=== PATIENT | female | born 1980 | race Hispanic/Latino ===

== ENCOUNTER 2024-10-20 09:32 | Inpatient (IN) | payer SELFPAY ==
[~2024-10-20] VITALS: Ht 165.1 cm; Wt 76.7 kg
[2024-10-20] MEDS: traMADol HCL 50 MG TABLET ONE (10:00)
--- NOTE | 2024-10-20 10:48 | HMCIMG ---
US TO LOCALIZE FB IN EYE REASON: EVALUATE RETINA. COMPARISON: None TECHNIQUE: Ultrasound images were obtained by the emergency room physician for evaluation of retina. FINDINGS: Please see referring physician procedure report. IMPRESSION: Findings as described above.
[2024-10-20] MEDS: traMADol HCL 50 MG TABLET PO ONE (10:52)
[2024-10-20] MEDS: ondanSETRON 4MG INJ IVP ONE ×2 (10:54→19:31)
[2024-10-20] MEDS: PANTOPrazole 40 MG/VIAL IVP ONE (10:54)
[2024-10-20] MEDS: LACTATED RINGERS 1000ML 1,000 ML IV ONE (10:55)
[2024-10-20 11:05] LABS: BASOPHILS # (AUTO) 0.13 K/uL (0.00-0.20); BASOPHILS % (AUTO) 0.8 % (0.0-5.0); EOSINOPHILS # (AUTO) 0.08 K/uL (0.00-0.70); EOSINOPHILS % (AUTO) 0.5 % (0.0-8.0); HEMATOCRIT 40.3 % (36-48); IMMATURE GRANULOCYTE ABSOLUTE 1.11 K/uL (0-1); LYMPHOCYTES # (AUTO) 2.5 K/uL (1.0-4.8); LYMPHOCYTES % (AUTO) 14.6 % (21.0-51.0); MEAN CORPUSCULAR HEMOGLOBIN 30.1 pg (27.0-33.0); MEAN CORPUSCULAR VOLUME 88.6 fL (79-99); MONOCYTES # (AUTO) 1.3 K/uL (0.1-1.0); MONOCYTES % (AUTO) 7.7 % (3.0-13.0); NEUTROPHILS # (AUTO) 11.8 K/uL (1.8-7.7); NEUTROPHILS % (AUTO) 69.8 % (40.0-77.0); PLATELET COUNT (AUTO) 202 K/uL (130-400); RED BLOOD CELL COUNT(AUTO) 4.55 MIL/uL (4.00-5.50); RED CELL DISTRIBUTION WIDTH 12.9 % (11.0-15.5); WHITE BLOOD COUNT (AUTO) 16.9 K/uL (4.8-10.8)
[2024-10-20] MEDS: morPHINE 4 MG SYG ONE (11:07)
[2024-10-20] MEDS: morPHINE 4 MG SYG IVP ONE (11:07)
[2024-10-20 11:16] LABS: POTASSIUM 3.5 mmol/L (3.5-5.1)
[2024-10-20 11:20] LABS: ALBUMIN 2.7 g/dL (3.5-5.0); BILIRUBIN,TOTAL 0.6 mg/dL (0.2-1.0); TOTAL PROTEIN, SERUM 7.7 g/dL (6.0-8.3)
--- NOTE | 2024-10-20 11:52 | EKG ---
[facility] Test Date: 2024-10-20 Test Time: 10:37:38 Pat Name: JAKE SANCHEZ Department: ED Room: Gender: F Reflexologist: STUDENT : 1980 Requested By: MAYITO SOMMERS Order Number: [id number] Reading MD: Sophia Ball Measurements Intervals Sinclair Rate: 78 P: 51 VT: 168 QRS: -26 QRSD: 83 T: 41 QT: 399 QTc: 456 Interpretive Statements Sinus rhythm Probable left atrial enlargement Low voltage, precordial leads No previous ECG available for comparison Electronically Signed On 10-20-2024 12:24:22 CDT by Sophia Ball Please click the below link to view image of tracing.
--- NOTE | 2024-10-20 12:58 | NUR ---
CT DELAY DUE TO HCG
--- NOTE | 2024-10-20 13:29 | HMCIMG ---
CT ABDOMEN/PELVIS W/O CONTRAST HISTORY: Low abdominal pain COMPARISON: None TECHNIQUE: Multiple sequential axial images of the abdomen and pelvis were obtained from the dome of the diaphragm through symphysis pubis. Patient was not given contrast through intravenous route. Oral contrast was not given. FINDINGS: No pleural effusion is seen bilaterally. There is no evidence of parenchymal disease or pulmonary nodule of the visualized lower lungs. Degenerative changes of the thoracolumbar spine are present. The heart is not enlarged. Liver measures 19 cm. Gastric distention is seen. Gallstone is seen in the distended gallbladder. The liver, spleen, adrenal glands and pancreas are unremarkable. No hydronephrosis is seen on the left. There is right renal enlargement with perinephric fat stranding and minimal right renal pelvis prominence. Findings may be related to pyelonephritis versus recently passed stone. Urinalysis correlation may be helpful. No evidence of renal stone is seen. Fecal material is seen in the colon. There are normal size retroperitoneal and mesenteric lymph nodes. No ascites is seen. Uterus has been removed. No CT evidence of acute appendicitis is seen. Pelvic sidewalls are symmetric bilaterally. Bladder is well distended without wall thickening. IMPRESSION: 1. There is right renal enlargement with perinephric fat stranding and minimal right renal pelvis prominence. Findings may be related to pyelonephritis versus recently passed stone. Urinalysis correlation may be helpful. CT was performed with one or more following dose reduction techniques: automated exposure control, adjustment of the mA and kv according to patient's size, or use of a iterative reconstruction technique.
[2024-10-20 13:34] LABS: APPEARANCE,URINE CLOUDY (CLEAR); BACTERIA,URINE RARE /HPF (None Seen); BILIRUBIN,URINE NEGATIVE (NEGATIVE); COLOR,URINE LIGHT-YELLOW (YELLOW); GLUCOSE, URINE (UA) >=1000 mg/dL (NEGATIVE); KETONES,URINE 150 mg/dL (NEGATIVE); LEUKOCYTE ESTERASE ,URINE 250 Leu/uL (NEGATIVE); MUCUS,URINE RARE LPF (None Seen); NITRATE,URINE 1+ (NEGATIVE); PH,URINE 5.5 (5.0-8.0); PROTEIN,URINE 20 mg/dL (NEGATIVE); SQUAMOUS EPITHELIAL CELL,UR FEW /HPF (0-2); UROBILINOGEN,URINE 0.2 mg/dL (0.2-1.0); WBC CLUMP FEW /HPF (0-1); WBC,URINE TNTC /HPF (0-1)
--- NOTE | 2024-10-20 13:43 | ERN ---
General Chief Complaint: Eye Problems Stated Complaint: RT EYE PAIN, Time Seen by MD: 09:41 Source: patient History of Present Illness Initial Comments Patient is a 44-year-old female coming in to be evaluated for right eye discomfort. Per patient this has been ongoing for several days was evaluated another emergency room and was told to follow up with water treatment specialist. Patient states that her vision is decreased in the right side and believes it was associated to retching. Allergies: Coded Allergies: No Known Allergies (Unverified Allergy, Unknown, 10/20/24) Past Medical History Past Medical History: No Pertinent History Past Surgical History: Hysterectomy ROS Dictation CONSTITUTIONAL: No chills, no fever, no weakness, no diaphoresis, no malaise. HEAD/FACE: No signs of trauma. EENT: No eye pain, blurred vision, no tearing, no double vision, no ear pain, no ear discharge, no nose pain, no nasal congestion, no throat pain, no throat swelling, no mouth pain. RESPIRATORY: No cough, no orthopnea, no SOB, no stridor, no wheezing. CARDIOVASCULAR: No chest pain, no edema, no palpitations, no syncope. GASTROINTESTINAL/ABDOMINAL: No abdominal pain, no constipation, no diarrhea, no nausea, no vomiting. GENITOURINARY: No abnormal discharge, no dysuria, no frequent urination, no hematuria. No complaints of pain in the genitals. MUSCULOSKELETAL: No back pain, no gout, no joint pain, no joint swelling, no muscle pain, no muscle stiffness, no neck pain. INTEGUMENTARY: No change in color, no change in hair/nails, no dryness, no lesion, no lumps, no rash. NEUROLOGICAL/PSYCH: No anxiety, not depressed, no emotional problem, no heada freda, no numbness, no pre-existing deficit, no history of seizures, no tremors, no weakness. HEMATOLOGIC/LYMPHATIC: Not anemic, no history of blood clots, no apparent bleeding, no bruising, glands not swollen. All Systems Negative, Except as Noted. Physical Exam Physical Exam Dictation VITAL SIGNS: Reviewed. GENERAL APPEARANCE: Alert, oriented x3, no acute distress, obese. HEAD AND FACE: Non-traumatic. EYES: PERRL, pink conjunctivas, eyelid no trauma, anterior chamber clear. EARS: Pinnas intact and no signs of trauma or erythema. Ear canals clear and no discharge. TMs no erythema. NOSE: No discharge, no bleeding. OROPHARYNX: Mouth normal, teeth no caries, tongue pink. Pharynx clear, no erythema. Tonsils no exudates, no abscesses noted. Mucous membrane moist. NECK: Supple, non-tender, no thyromegaly, no masses, no JVD, no bruits. BREAST: Deferred. CHEST: No tenderness, no crepitus, no paradoxical movement, no retractions. LUNGS: Clear, well-ventilated, symmetric, no rales, no wheezing, no rhonchi, no stridor, good breath sounds bilaterally. HEART: Regular rate, regular rhythm, no murmur, no gallops. VASCULAR: No peripheral edema. ABDOMEN: Soft, positive bowel sounds, nondistended, no guarding, nontender, no rebound, no masses no hepatomegaly, no splenomegaly, no Henning's sign, no hernias. RECTAL: Deferred. GENITAL: Deferred. NEUROLOGICAL: Normal speech, gross motor function intact, gross sensory function intact. MUSCULOSKELETAL: Neck nontender, full range of motion, back nontender, full range of motion. EXTREMITIES: Nontender, full range of motion. SKIN: Color pink, dry, no turgor, no rash, no lacerations, no abrasions, no contusions. LYMPHATICS: Deferred. Results Laboratory and Microbiology Lab and Micro Result Laboratory Tests Test 10/20/24 11:00 10/20/24 12:55 White Blood Count 16.9 K/uL (4.8-10.8) H Red Blood Count 4.55 MIL/uL (4.00-5.50) Hemoglobin 13.7 g/dL (12.0-16.0) Hematocrit 40.3 % (36-48) Mean Corpuscular Volume 88.6 fL (79-99) Mean Corpuscular Hemoglobin 30.1 pg (27.0-33.0) Mean Corpuscular Hemoglobin Concent 34.0 g/dL (32.0-36.0) Red Cell Distribution Width 12.9 % (11.0-15.5) Platelet Count 202 K/uL (130-400) Mean Platelet Volume 10.6 fL (7.5-10.5) H Immature Granulocyte % (Auto) 6.6 % (0-1) H Neutrophils (%) (Auto) 69.8 % (40.0-77.0) Lymphocytes (%) (Auto) 14.6 % (21.0-51.0) L Monocytes (%) (Auto) 7.7 % (3.0-13.0) Eosinophils (%) (Auto) 0.5 % (0.0-8.0) Basophils (%) (Auto) 0.8 % (0.0-5.0) Neutrophils # (Auto) 11.8 K/uL (1.8-7.7) H Lymphocytes # (Auto) 2.5 K/uL (1.0-4.8) Monocytes # (Auto) 1.3 K/uL (0.1-1.0) H Eosinophils # (Auto) 0.08 K/uL (0.00-0.70) Basophils # (Auto) 0.13 K/uL (0.00-0.20) Absolute Immature Granulocyte (auto 1.11 K/uL (0-1) H Nucleated Red Blood Cells 0.0 % (0.0-0.19) Sodium Level 131 mmol/L (136-145) L Potassium Level 3.5 mmol/L (3.5-5.1) Chloride Level 92 mmol/L (101-111) L Carbon Dioxide Level 22 mmol/L (21-32) Blood Urea Nitrogen 20 mg/dL (7-18) H Creatinine 1.0 mg/dL (0.5-1.0) Glomerular Filtration Rate Calc 70 mL/min (>90) Random Glucose 313 mg/dL (70-105) H Total Calcium 9.5 mg/dL (8.5-10.1) Total Bilirubin 0.6 mg/dL (0.2-1.0) Aspartate Amino Transf (AST/SGOT) 19 U/L (10-37) Alanine Aminotransferase (ALT/SGPT) 36 U/L (12-78) Alkaline Phosphatase 140 U/L (50-136) H Troponin I High Sensitivity < 4 ng/L (4-50) L Total Protein 7.7 g/dL (6.0-8.3) Albumin 2.7 g/dL (3.5-5.0) L Lipase 36 U/L (16-77) Urine Color LIGHT-YELLOW (YELLOW) Urine Appearance CLOUDY (CLEAR) H Urine pH 5.5 (5.0-8.0) Urine Specific [place] 1.023 (1.001-1.031) Urine Protein 20 mg/dL (NEGATIVE) H Urine Glucose (UA) >=1000 mg/dL (NEGATIVE) H Urine Ketones 150 mg/dL (NEGATIVE) H Urine Occult Blood +- (TRACE) (NEGATIVE) H Urine Nitrate 1+ (NEGATIVE) H Urine Bilirubin NEGATIVE mg/dL (NEGATIVE) Urine Urobilinogen 0.2 mg/dL (0.2-1.0) Urine Leukocyte Esterase 250 Javan/uL (NEGATIVE) H Urine RBC 2-5 /HPF (0-1) H Urine WBC TNTC /HPF (0-1) H Urine WBC Clumps (Auto) FEW /HPF (0-1) Urine Squamous Epithelial Cells FEW /HPF (0-2) Urine Bacteria RARE /HPF (None Seen) Urine HCG, Qualitative NEGATIVE (NEGATIVE) Labs Reviewed?: Yes EKG/XRAY/US/CT/MRI CT Scan Comment [place] [address] [id number] IMAGING REPORT Signed PATIENT: JAKE SANCHEZ MR#: [id number] : 1980 SEX: F AGE: 44 LOCATION: [facility] ORDER 1232 STATUS: [facility] REPORT#: [id number] SERVICE 1232 REASON: LOWER ABD PAIN ORDERING PHYSICIAN: MAYITO SOMMERS MD PROCEDURE: ABD PEL WO - CT ABDOMEN/PELVIS W/O CONTRAST CT ABDOMEN/PELVIS W/O CONTRAST HISTORY: Low abdominal pain COMPARISON: None TECHNIQUE: Multiple sequential axial images of the abdomen and pelvis were obtained from the dome of the diaphragm through symphysis pubis. Patient was not given contrast through intravenous route. Oral contrast was not given. FINDINGS: No pleural effusion is seen bilaterally. There is no evidence of parenchymal disease or pulmonary nodule of the visualized lower lungs. Degenerative changes of the thoracolumbar spine are present. The heart is not enlarged. Liver measures 19 cm. Gastric distention is seen. Gallstone is seen in the distended gallbladder. The liver, spleen, adrenal glands and pancreas are unremarkable. No hydronephrosis is seen on the left. There is right renal enlargement with perinephric fat stranding and minimal right renal pelvis prominence. Findings may be related to pyelonephritis versus recently passed stone. Urinalysis correlation may be helpful. No evidence of renal stone is seen. Fecal material is seen in the colon. There are normal size retroperitoneal and mesenteric lymph nodes. No ascites is seen. Uterus has been removed. No CT evidence of acute appendicitis is seen. Pelvic sidewalls are symmetric bilaterally. Bladder is well distended without wall thickening. IMPRESSION: 1. There is right renal enlargement with perinephric fat stranding and minimal right renal pelvis prominence. Findings may be related to pyelonephritis versus recently passed stone. Urinalysis correlation may be helpful. CT was performed with one or more following dose reduction techniques: automated exposure control, adjustment of the mA and kv according to patient's size, or use of a iterative reconstruction technique. DICTATED BY: ALISON MORALES MD DATE: 10/20/24 1322 ELECTRONICALLY SIGNED BY: ALISON MORALES MD DATE: 10/20/24 1329 [place] [address] [place] [id number] IMAGING REPORT Signed PATIENT: JAKE SANCHEZ MR#: [id number] : 1980 SEX: F AGE: 44 LOCATION: ED ORDER 7 STATUS: REG ER REPORT#: [id number] SERVICE REASON: EVALUATE RETINA ORDERING PHYSICIAN: MAYITO SOMMERS MD PROCEDURE: FB EYE - US TO LOCALIZE FB IN EYE US TO LOCALIZE FB IN EYE REASON: EVALUATE RETINA. COMPARISON: None TECHNIQUE: Ultrasound images were obtained by the emergency room physician for evaluation of retina. FINDINGS: Please see referring physician procedure report. IMPRESSION: Findings as described above. DICTATED BY: ALISON MORALES MD DATE: 10/20/24 1044 ELECTRONICALLY SIGNED BY: ALISON MORALES MD DATE: 10/20/24 1048 [place] [address] [id number] IMAGING REPORT Signed PATIENT: JAKE SANCHEZ MR#: [id number] : 1980 SEX: F AGE: 44 LOCATION: [facility] ORDER 21 STATUS: REG ER REPORT#: [id number] SERVICE 20 REASON: headache ORDERING PHYSICIAN: MAYITO SOMMERS MD PROCEDURE: HEAD WO - CT HEAD/BRAIN W/O CONTRAST CT HEAD/BRAIN W/O CONTRAST HISTORY: Headaches COMPARISON: None TECHNIQUE: Multiple sequential axial images of the head were obtained from the base of the skull through vertex. Patient was not given contrast through intravenous route. FINDINGS: The ventricles and extraventricular CSF spaces are nondilated for patient's age. Bilateral basal ganglia calcifications are seen. There is no midline shift, mass effect or herniation. No acute intracranial bleed is seen. Visualized portion of the paranasal sinuses are grossly within normal limits. IMPRESSION: 1. No acute intracranial bleed is seen. CT was performed with one or more following dose reduction techniques: automated exposure control, adjustment of the mA and kv according to patient's size, or use of a iterative reconstruction technique. DICTATED BY: ALISON MORALES MD DATE: 10/20/241530 ELECTRONICALLY SIGNED BY: ALISON MORALES MD DATE: 10/20/24 153 [facility] MDM: Differential diagnosis:, retinal detachment, virus, Rationale: Tests considered and ordered secondary to shared decision making include: Previous outside records reviewed: Old ER visits. Patient is a 44-year-old female coming in to be evaluated for right eye vision loss. She states that this has been ongoing for several days was evaluated another emergency room was referred to cane stripper but states that she has not followed up. Long with this during the ER stay patient states that she was retching which caused the right eye pressure to increased. She states that this has been ongoing in his also complaining of lower abdominal pain secondary to the retching. CT was performed due to the ongoing abdominal pain which disclosed pyelonephritis. Long with a his patient had decreased vision in the right eye ultrasound disclose a mild retinal detachment. Dr. Bustillos consulted cane stripper she will see patient in the hospital. She states that she was scheduled patient for office visit possible surgical evaluation. Patient will be admitted under the care of hospitalist group for ongoing management of pyelonephritis. ED Course Orders Procedure Category Date Status Time Tramadol Hcl (Ultram) PHA 10/20/24 Complete 10:00 Us To Localize Fb In US 10/20/24 Resulted EYE 09:57 Tramadol Hcl (Ultram) PHA 10/20/24 Complete 09:58 Cbc With Differential LAB 10/20/24 Complete 10:24 Comprehensive LAB 10/20/24 Complete Metabolic Panel 10:24 Troponin I High LAB 10/20/24 Complete Sensitivity 10:24 12 Lead Ekg Tracing- EKG 10/20/24 Resulted Technical 10:24 Lactated Ringers PHA 10/20/24 Complete 1000ml (Lactated 10:30 Ondansetron 4mg Inj PHA 10/20/24 Complete (Zofran 4mg Inj) 10:30 Pantoprazole 40mg Inj PHA 10/20/24 Complete (Protonix 40mg Inj 10:30 Lipase LAB 10/20/24 Complete 10:24 Morphine 4mg Syg PHA 10/20/24 Complete (Morphine 4mg Syg) 11:30 Morphine 4mg Syg PHA 10/20/24 Complete (Morphine 4mg Syg) 11:05 Urinalysis LAB 10/20/24 Complete W/Microscopic 12:32 Ct Abdomen/Pelvis W/O CT 10/20/24 Resulted Contrast 12:32 ,Urine Test LAB 10/20/24 Complete 12:32 Culture Urine SAL 10/20/24 In Process 13:37 Ct Head/Brain W/O CT 10/20/24 Resulted Contrast 14:21 Acetaminophen 325 Tab PHA 10/20/24 Complete (Tylenol 325mg Tab 14:30 Ceftriaxone 1g Vial PHA 10/20/24 In Process (Rocephine 1g Inj) 17:00 Ceftriaxone 1g Vial PHA 10/20/24 Complete (Rocephine 1g Inj) 17:04 Current Medications Medications (Trade) Dose Ordered Sig/Tyrell Route PRN Reason Start Time Stop Time Status Last Admin Dose Admin Acetaminophen (TYLenol 325MG TAB) 650 mg ONCE ONCE PO 10/20/24 14:30 10/20/24 14:31 DC 10/20/24 14:25 Ceftriaxone Sodium (ROCEphine 1G INJ) 1 gm ONCE IVPB 10/20/24 17:00 10/20/24 21:00 Ceftriaxone Sodium (ROCEphine 1G INJ) 1 gm STK-MED ONCE .ROUTE 10/20/24 17:04 10/20/24 17:04 DC 10/20/24 17:06 Lactated Ringer's 1,000 ml @ 0 mls/hr ONCE ONCE IV 10/20/24 10:30 10/20/24 10:31 DC 10/20/24 10:55 Morphine Sulfate (morPHINE 4MG SYG) 4 mg ONCE ONCE IVP 10/20/24 11:30 10/20/24 11:31 DC 10/20/24 11:07 Morphine Sulfate (morPHINE 4MG SYG) 4 mg STK-MED ONCE .ROUTE 10/20/24 11:05 10/20/24 11:05 DC Ondansetron HCl (zoFRAN 4MG INJ) 4 mg ONCE ONCE IVP 10/20/24 10:30 10/20/24 10:31 DC 10/20/24 10:54 Pantoprazole Sodium (PROTonix 40MG INJ) 40 mg ONCE ONCE IVP 10/20/24 10:30 10/20/24 10:31 DC 10/20/24 10:54 Tramadol HCl (UltRAM) 50 mg ONCE ONCE PO 10/20/24 10:00 10/20/24 10:02 DC Tramadol HCl (UltRAM) 50 mg STK-MED ONCE .ROUTE 10/20/24 09:58 10/20/24 09:58 DC 10/20/24 10:00 Vital Signs Date Time Temp Pulse Resp B/P (MAP) Pulse Ox O2 Delivery O2 Flow Rate FiO2 10/20/24 14:52 81 16 140/78 98 Room Air* 0 21 10/20/24 12:36 82 16 141/81 98 Room Air* 0 21 10/20/24 09:35 98.2 95 16 123/79 98 Room Air 0 DX & DISP Disposition: Inpatient Decision to Admit Time: 18:23 Departure Impression: Primary Impression: Retinal detachment Additional Impression: Pyelonephritis Condition: Stable Referrals: NONE (PCP) MAYITO SOMMERS MD Oct 20, 2024 13:43
[2024-10-20 13:46] LABS: HCG,QUALITATIVE URINE NEGATIVE (NEGATIVE)
--- NOTE | 2024-10-20 14:22 | NUR ---
PT C/O HEADACHE, TYLENOL ORDERED BY DR. SOMMERS
[2024-10-20] MEDS: acetaMINOPHEN 325 MG TAB PO ONE (14:25)
--- NOTE | 2024-10-20 15:33 | HMCIMG ---
CT HEAD/BRAIN W/O CONTRAST HISTORY: Headaches COMPARISON: None TECHNIQUE: Multiple sequential axial images of the head were obtained from the base of the skull through vertex. Patient was not given contrast through intravenous route. FINDINGS: The ventricles and extraventricular CSF spaces are nondilated for patient's age. Bilateral basal ganglia calcifications are seen. There is no midline shift, mass effect or herniation. No acute intracranial bleed is seen. Visualized portion of the paranasal sinuses are grossly within normal limits. IMPRESSION: 1. No acute intracranial bleed is seen. CT was performed with one or more following dose reduction techniques: automated exposure control, adjustment of the mA and kv according to patient's size, or use of a iterative reconstruction technique.
[2024-10-20] MEDS: cefTRIAXone 1G VIAL IVPB SCH (17:00)
[2024-10-20] MEDS: cefTRIAXone 1G VIAL ONE (17:06)
--- NOTE | 2024-10-20 19:23 | NUR ---
TOOK OVER PATIENT AT THIS TIME
[2024-10-20] MEDS ORDERED: PoTASSium chloRIDE 20MEQ/100ML 100 ML IV PRN (19:30)
[2024-10-20] MEDS ORDERED: PoTASSium chloRIDE 20MEQ ER 20 MEQ ERTAB PO PRN (19:30)
[2024-10-20] MEDS ORDERED: PoTASSium chl 10% ELIXIR 20MEQ 20 MEQ/15 ML UDCUP PO PRN (19:30)
[2024-10-20] MEDS ORDERED: DEXTROSE 50%-WATER 50 ML DISP.SYRIN IV PRN (19:30)
[2024-10-20] MEDS ORDERED: GLUCAGON 1MG KIT 1 MG ML IM PRN (19:30)
[2024-10-20] MEDS ORDERED: acetaMINOPHEN 325 MG TAB PO PRN (19:30)
[2024-10-20] MEDS ORDERED: MAGNESIUM 2GM PREMIX 50ML 50 ML IV PRN (19:30)
[2024-10-20] MEDS: morPHINE 2 MG SYG IM ONE (19:32)
--- NOTE | 2024-10-20 19:35 | HP ---
[facility] HISTORY AND PHYSICAL Date of Service: Oct 20, 2024 Time of Service: 19:35 PCP: Self-referral HISTORY OF PRESENT ILLNESS: This is a 44-year-old female with no pertinent medical history who presented to the ED for complaints of right eye pain.Patient reports her condition started when she was in [place], [place] and was having nausea and vomiting since Sunday and and when she woke up on Sunday she had seen black specks on her right eye and patient also reports she continued to have nausea but no vomiting and on Sunday she woke up with diminished vision on her right eye and she started having eye pain and on Sunday night she lost her vision she said and she went to an ER in [place] and was told to follow up with an opthalmologist on Sunday however patient decided to go home and drive from [place] to [place] today.Patient also states she had Lasik procedure done 25 years ago on both eyes in [place].Patient states this is the first time it happened and she thought that due eye pressure from nausea and vomiting she had this eye problem .Patient admits to drinking 6-7 beers per week and smoke 2 cigarettes per day and denies recreational drug use.Patient also reports she also has right flank pain but already subsided because she was given pain medication.Patient's mother was at bedside during my evaluation. Seen and examined patient in the ER awake,alert and coherent.Patient continue to complain of right side headache and right eye pain 8/10 pain level.Patient states " I cant see on my right eye since Sunday night " Right eye is non reactive with pale retina and Patient denies fever,dizziness ,chest pain,palpitation and shortness of breath. Vital signs temperature 98.6, heart rate 96, respiration 20, blood pressure 137/75 saturation 100% on room air. Labs: WBC 16.9, hemoglobin 13.7, hematocrit 40, platelet count 202. Sodium 131, potassium 3.5, chloride 92, BUN 20, creatinine 1, GFR 70, glucose 313, alkaline phosphatase 140 albumin 2.7. Urinalysis consistent with urinary tract infection. CT head result revealed no acute intracranial bleed is seen. CT abdomen and pelvis without contrast result revealed there is right renal enlargement with perinephric fat stranding and minimal right renal pelvis prominence. Findings may be related to pyelonephritis versus recently passed stone. Pending at this time however as per ER MD right eye ultrasound disclosed a mild retinal detachment. An blanket cutting machine operator Dr. Bustillos was consulted by ER doctor Melissa as per report and we will see the patient in the hospital. While in the ER patient received Rocephin IV, Zofran 4 mg IV, morphine 4 mg IV, Protonix 40 mg IV, Ultram 50 mg p.o. and 1 L LR bolus. We will admit patient for further medical management. REVIEW OF SYSTEMS CONSTITUTIONAL: Denies fevers, chills, or night sweats. No unintentional weight loss reported. NEUROLOGICAL: Complain of right sided headache Denies amaurosis fugax, motor weakness, sensory deficit, vertigo/spinning sensation, gait abnormalities, or tremors. ENT: Patient complained of right eye vision loss and right eye pain No hearing loss, otalgia, otorrhea, rhinitis, rhinorrhea, hoarseness, or sore throat. CARDIOVASCULAR: Denies any exertional angina, dyspnea on exertion, orthopnea, paroxysmal nocturnal dyspnea, palpitations, life-threatening arrhythmias, c laudication. PULMONARY: Denies any shortness of breath, cough, phlegm/sputum, hemoptysis, pleuritic chest pain. SLEEP: Denies morning headaches, daytime somnolence or napping. Denies difficulty falling asleep, staying asleep, waking from sleep. Denies knowledge of snoring. GASTROINTESTINAL: Denies any type of dysphagia to either liquids or solids. Denies nausea, vomiting, pyrosis, early satiety, abdominal pain, diarrhea, cons tipation, or changes in stool consistency or caliber. Denies coffee-ground emesis, hematemesis, hematochezia, or melanotic stools. GENITOURINARY: Denies frequency, urgency, nocturia, hematuria or incontinence (Storage/Irritative symptoms.) Low urinary stream, straining to void, urinary intermittency or hesitancy, splitting of the voiding stream, terminal dribbling. ENDOCRINOLOGIC: Denies polyuria, polydipsia, polyphagia or heat/cold intolerances. HEMATOLOGIC: Denies thrombophilia/previous clots, or coagulopathy/bleeding disorders. ONCOLOGIC: Denies personal history of malignancy. DERMATOLOGIC: Denies rashes or pruritus. PSYCHIATRIC: Denies any suicidal or homicidal ideation. Denies hallucinations. PAST MEDICAL HISTORY: [Patient denies ] PAST SURGICAL HISTORY: [ Bilateral eye LASIK procedure 25 years ago in [place] ] PAST SOCIAL HISTORY: [ Patient lives with mother. Patient admits to smoke two cigarettes per day drinks 6-7 beers per week and denies recreational drug use ] FAMILY HISTORY: [ Mother diabetes ] Coded Allergies: No Known Allergies (Unverified Allergy, Unknown, 10/20/24) PHYSICAL EXAM GENERAL APPEARANCE: The patient is awake, alert, and oriented, in no acute cardiopulmonary distress. NEUROLOGICAL: Cranial nerves II-XII grossly intact. Motor is 5/5 in bilateral upper and lower extremities proximal to distal. No sensory deficits. HEENT: Right eye nonreactive and pale retina Face is symmetric. NECK: Supple. No JVD. No thyromegaly. No submental, submandibular, pre- /postauricular, occipital or supraclavicular lymphadenopathy. CHEST: Normal chest expansion. No Telemetry. LUNGS: Absence of any rales, rhonchi or any wheezing. CARDIOVASCULAR: Regular. S1 and S2 normal. No appreciable rubs, murmurs or gallops. ABDOMEN: Soft, nontender, and nondistended. There is no rebound, voluntary guarding, or rigidity. : Deferred. No Ryan. EXTREMITIES: Non-edematous and not cyanotic. No clubbing. Good capillary refill. SKIN: No skin breakdown. Vital Sign (Last 24 Hours) 10/20/24 19:23 Temp 98.6 Pulse 96 Resp 20 B/P (MAP) 137/75 Pulse Ox 100 O2 Delivery Room Air* O2 Flow Rate 0 FiO2 21 LABS: Laboratory: Test 10/20/24 12:55 10/20/24 11:00 Range/Units Urine Color LIGHT-YELLOW YELLOW Urine Appearance CLOUDY H CLEAR Urine pH 5.5 5.0-8.0 Urine Specific Reedley 1.023 1.001-1.031 Urine Protein 20 H NEGATIVE mg/dL Urine Glucose (UA) >=1000 H NEGATIVE mg/dL Urine Ketones 150 H NEGATIVE mg/dL Urine Occult Blood +- (TRACE) H NEGATIVE Urine Nitrate 1+ H NEGATIVE Urine Bilirubin NEGATIVE NEGATIVE mg/dL Urine Urobilinogen 0.2 0.2-1.0 mg/dL Urine Leukocyte Esterase 250 H NEGATIVE Javan/uL Urine RBC 2-5 H 0-1 /HPF Urine WBC TNTC H 0-1 /HPF Urine WBC Clumps (Auto) FEW 0-1 /HPF Urine Squamous Epithelial Cells FEW 0-2 /HPF Urine Bacteria RARE None Seen /HPF Urine HCG, Qualitative NEGATIVE NEGATIVE White Blood Count 16.9 H 4.8-10.8 K/uL Red Blood Count 4.55 4.00-5.50 MIL/uL Hemoglobin 13.7 12.0-16.0 g/dL Hematocrit 40.3 36-48 % Mean Corpuscular Volume 88.6 79-99 fL Mean Corpuscular Hemoglobin 30.1 27.0-33.0 pg Mean Corpuscular Hemoglobin Concent 34.0 32.0-36.0 g/dL Red Cell Distribution Width 12.9 11.0-15.5 % Platelet Count 202 130-400 K/uL Mean Platelet Volume 10.6 H 7.5-10.5 fL Immature Granulocyte % (Auto) 6.6 H 0-1 % Neutrophils (%) (Auto) 69.8 40.0-77.0 % Lymphocytes (%) (Auto) 14.6 L 21.0-51.0 % Monocytes (%) (Auto) 7.7 3.0-13.0 % Eosinophils (%) (Auto) 0.5 0.0-8.0 % Basophils (%) (Auto) 0.8 0.0-5.0 % Neutrophils # (Auto) 11.8 H 1.8-7.7 K/uL Lymphocytes # (Auto) 2.5 1.0-4.8 K/uL Monocytes # (Auto) 1.3 H 0.1-1.0 K/uL Eosinophils # (Auto) 0.08 0.00-0.70 K/uL Basophils # (Auto) 0.13 0.00-0.20 K/uL Absolute Immature Granulocyte (auto 1.11 H 0-1 K/uL Nucleated Red Blood Cells 0.0 0.0-0.19 % Sodium Level 131 L 136-145 mmol/L Potassium Level 3.5 3.5-5.1 mmol/L Chloride Level 92 L 101-111 mmol/L Carbon Dioxide Level 22 21-32 mmol/L Blood Urea Nitrogen 20 H 7-18 mg/dL Creatinine 1.0 0.5-1.0 mg/dL Glomerular Filtration Rate Calc 70 >90 mL/min Random Glucose 313 H 70-105 mg/dL Total Calcium 9.5 8.5-10.1 mg/dL Total Bilirubin 0.6 0.2-1.0 mg/dL Aspartate Amino Transf (AST/SGOT) 19 10-37 U/L Alanine Aminotransferase (ALT/SGPT) 36 12-78 U/L Alkaline Phosphatase 140 H 50-136 U/L Troponin I High Sensitivity < 4 L 4-50 ng/L Total Protein 7.7 6.0-8.3 g/dL Albumin 2.7 L 3.5-5.0 g/dL Lipase 36 16-77 U/L Current Medications Medications (Trade) Dose Ordered Sig/Tyrell Route PRN Reason Start Time Stop Time Status Last Admin Dose Admin Ceftriaxone Sodium (ROCEphine 1G INJ) 1 gm ONCE IVPB 10/20/24 17:00 10/20/24 21:00 DIAGNOSTICS / RADIOLOGY: [ ] ASSESSMENT: Acute right eye retinal detachment with vision loss POA Right pyelonephritis POA Acute urinary tract infection POA Hyperglycemia denies diagnosis of diabetes POA Acute leukocytosis POA PLAN: We will admit patient in medical telemetry We will start on consistent carb diet We will start NS @ 100 ml / hr and re evaluate x2 bags and re-evaluate We will start patient on Rocephin 1 g IV b.i.d. for empiric coverage We will start on Famotidine 20 mg IV bid for GI prophylaxis We will replace electrolytes as needed per protocol We will start on insulin sliding scale AC & HS with hypoglycemia protocol We will add prn medication for fever,pain,cough , nausea and vomiting Ophthalmology consulted ER MD pending evaluation We will obtain MRI brain and orbits without contrast We will obtain carotid Doppler We will obtain urine drug screen and follow-up result We will request labs in am Further orders to follow depending on above results Case discussed with attending physician and came up with above treatment and plan of care. ADVANCED CARE PLANNING 1. Which of the following were discussed? Hospice Care - No Therapeutic options - Yes Advance Directives - No Other discussions - 2. Discussed with who? Patient 3. Voluntary nature of this service was explained to the patient? Yes 4. Amount of time spent - __25 5. Reviewed by Physician? (if this service was performed by NPP) Yes LipidLi[pidlipPatient seen and examined by me. Agree with note by ACOUSTICAL INSTALLER SEE ADDITIONAL ORDERS PER CHART DISCUSSED WITH NURSING STAFF MICHELLE CASTILLO [employer]RAVER [employer]ATE Oct 20, 2024 19:35
[2024-10-20 20:10] VITALS: BP 139/74; PULSE 92; RESP 18; TEMP 98.1
[2024-10-20] MEDS: INSULIN humuLIN R 100 UNIT/ML 3ML SQ SCH (21:00)
[2024-10-20] MEDS: acetaMINOPHEN 325 MG TAB PO PRN (21:00)
[2024-10-20] MEDS ORDERED: cefTRIAXone 1G VIAL 1 GM in 0.9%NACL 50ML 50 ML IV SCH (21:00)
[2024-10-20] MEDS: FAMOTIDINE 20MG VIAL IV SCH (21:03)
[2024-10-20] MEDS: 0.9%NACL 1000ML 1,000 ML IV SCH (21:03)
[2024-10-20 22:47] LABS: AMPHET/METH SCREEN,URINE NEGATIVE (NEGATIVE); BARBITURATE SCREEN, URINE NEGATIVE (NEGATIVE); BENZODIAZEPINES SCREEN,URINE NEGATIVE (NEGATIVE); CANNABINOID SCREEN,URINE NEGATIVE (NEGATIVE); COCAINE SCREEN,URINE NEGATIVE (NEGATIVE); OPIATE SCREEN,URINE NEGATIVE (NEGATIVE); PHENCYCLIDINE SCREEN,URINE NEGATIVE (NEGATIVE)
--- NOTE | 2024-10-20 22:57 | EKG ---
[facility] Test Date: 2024-10-20 Test Time: 21:54:47 Pat Name: JAKE SANCHEZ Department: [facility] Room: 209 Gender: F Imager: dr LEWIS: 1980 Requested By: MICHELLE CASTILLO Order Number: [id number] Reading MD: Juan Bo Measurements Intervals Devol Rate: 86 P: 27 GA: 154 QRS: -24 QRSD: 76 T: 35 QT: 388 QTc: 464 Interpretive Statements Normal sinus rhythm Compared to ECG 10/20/2024 10:37:38 No significant changes Electronically Signed On 10-22-2024 07:04:27 CDT by Juan Bo Please click the below link to view image of tracing.
[2024-10-20 23:50] VITALS: BP 146/74; PULSE 86; RESP 18; TEMP 98.4
[2024-10-21] VITALS (28 sets, daily range): BP systolic 124–158; BP diastolic 75–94; PULSE 80–101; RESP 14–21; TEMP 98–98.8; O2SAT 99–100
[2024-10-21] MEDS: morPHINE 2 MG SYG IV PRN (01:15)
[2024-10-21] MEDS: PROMETHAZINE HCL 25 MG/ML 1ML AMPULE IM ONE (01:28)
[2024-10-21] MEDS: PROMETHAZINE HCL 25 MG/ML 1ML AMPULE IM PRN (01:44)
--- NOTE | 2024-10-21 01:48 | HMCIMG ---
US CAROTID DUPLEX HISTORY: No additional history given. COMPARISON: None TECHNIQUE: Duplex carotid arterial Doppler ultrasound study was performed. FINDINGS: The common, internal and external carotid arteries are visualized. The peak systolic velocities of right common carotid artery is 80 centimeters per second, right internal carotid artery is 75 centimeters per second, right external carotid artery is 82 centimeters per second, and right vertebral artery is 49 centimeters per second. Right internal carotid artery to right common carotid artery ratio is 0 point. Right vertebral artery is seen with antegrade flow. The peak systolic velocities of left common carotid artery is 85 centimeters per second, left internal carotid artery is 78 centimeters per second, left external carotid artery is 107 centimeters per second, and left vertebral artery is 58 centimeters per second. Left internal carotid artery to left common carotid artery ratio is 0.9. Left vertebral artery is seen with antegrade flow. There are bilateral echogenic plaques. IMPRESSION: 1. No hemodynamically significant lesion is seen of either extracranial carotid artery system.
[2024-10-21 04:40] LABS: BASOPHILS % (AUTO) 0.5 % (0.0-5.0); EOSINOPHILS # (AUTO) 0.05 K/uL (0.00-0.70); EOSINOPHILS % (AUTO) 0.3 % (0.0-8.0); HEMATOCRIT 36.8 % (36-48); IMMATURE GRANULOCYTE ABSOLUTE 0.95 K/uL (0-1); LYMPHOCYTES # (AUTO) 3.2 K/uL (1.0-4.8); LYMPHOCYTES % (AUTO) 16.6 % (21.0-51.0); MEAN CORPUSCULAR HEMOGLOBIN 30.1 pg (27.0-33.0); MEAN CORPUSCULAR HGB CONC 33.7 g/dL (32.0-36.0); MEAN CORPUSCULAR VOLUME 89.3 fL (79-99); MONOCYTES # (AUTO) 1.7 K/uL (0.1-1.0); MONOCYTES % (AUTO) 9.2 % (3.0-13.0); NEUTROPHILS % (AUTO) 68.4 % (40.0-77.0); PLATELET COUNT (AUTO) 237 K/uL (130-400); RED BLOOD CELL COUNT(AUTO) 4.12 MIL/uL (4.00-5.50); RED CELL DISTRIBUTION WIDTH 13.2 % (11.0-15.5)
[2024-10-21 05:01] LABS: ALBUMIN 2.3 g/dL (3.5-5.0); BILIRUBIN,TOTAL 0.4 mg/dL (0.2-1.0); MAGNESIUM 1.7 mg/dL (1.80-2.40); POTASSIUM 4.5 mmol/L (3.5-5.1)
[2024-10-21 05:02] LABS: HEMOGLOBIN A1C 12.1 % (4.0-6.0)
[2024-10-21] MEDS: cefTRIAXone 1G VIAL IVPB SCH (05:10)
[2024-10-21 06:02] LABS: ERYTHROCYTE SEDIMENTATION RATE 98 MM/HR (0-20)
[2024-10-21] MEDS: traMADol HCL 50 MG TABLET PO ONE (06:41)
--- NOTE | 2024-10-21 08:00 | NUR ---
PATIENT COMPLAINING OF NAUSEA AND PAIN TO RIGHT EYE. REFUSING MORPHINE AT THIS TIME. PROVIDED COMFORTING ENVIRONMENT, TURNED OFF LIGHTS AND ADVISED PATIENT NOT TO BEND DOWN OR TRY TO GET OUT OF BED WITHOUT ASSISTANCE.
[2024-10-21 08:09] LABS: ABG BASE EXCESS -13.8 mmol/L (-2.0-3.0); ABG HCO3 9.9 mmol/L (21.0-28.0); ABG OXYGEN SATURATION 97.3 % (94.0-98.0); ABG PH 7.313 (7.350-7.450); DEVICE COMMENT RR; VENT MODE, BG RA (ROOM AIR)
--- NOTE | 2024-10-21 08:36 | NUR ---
REPORT GIVEN TO BRITT IN ICU FOR PATIENT BEING TRANSFERRED FOR DIABETIC KETOACIDOSIS. ADVISED PATIENT GIVEN PHENERGAN FOR NAUSEA AND REFUSING MORPHINE FOR PAIN. PATIENT ALERT AND ORIENTED X 4. ALL QUESTIONS AND CONCERNED ANSWERED.
--- NOTE | 2024-10-21 08:58 | PN ---
[facility] PROGRESS NOTE Date of Service: Oct 21, 2024 Time of Service: 08:46 SUBJECTIVE: This is a 44-year-old female with no pertinent medical history who presented to the ED for complaints of right eye pain. Patient reportd her condition started when she was in [place], [place] and was having nausea and vomiting with the associated decreased vision to the I, reason for which she went to the ER in [facility], she was advised to follow up with the sleeve ironer as an outpatient, however the patient decided to try to [facility]. Patient also states she had Lasik procedure done 25 years ago on both eyes in [place]. Seen and examined patient in the ER awake,alert and coherent. Patient continued to complain of right side headache and right eye pain 8/10 pain level. In the emergency room Vital signs temperature 98.6, heart rate 96, respiration 20, blood pressure 137/75 saturation 100% on room air. In the emergency room Labs: WBC 16.9, hemoglobin 13.7, hematocrit 40, platelet count 202. Sodium 131, potassium 3.5, chloride 92, BUN 20, creatinine 1, GFR 70, glucose 313, alkaline phosphatase 140 albumin 2.7. Urinalysis consistent with urinary tract infection. CT head result revealed no acute intracranial bleed is seen. CT abdomen and pelvis without contrast result revealed there is right renal enlargement with perinephric fat stranding and minimal right renal pelvis prominence. Findings may be related to pyelonephritis versus recently passed stone. An sleeve ironer Dr. Bustillos was consulted by ER doctor Melissa as per report and will see the patient in the hospital. While in the ER patient received Rocephin IV, Zofran 4 mg IV, morphine 4 mg IV, Protonix 40 mg IV, Ultram 50 mg p.o. and 1 L LR bolus. We will admit patient for further medical management. 10/21 patient is seen and examined at bedside, case discussed with the RN, the patient upgraded to the ICU due to lab findings of DKA, she has been started on insulin drip, during my visit the patient is alert oriented x3, noted to have swollen to the right eye consistent with a right periorbital cellulitis, unable to open the eyes. Denies itching. No chest pain, denies shortness for breath, no nausea, no vomiting. Family at bedside. REVIEW OF SYSTEMS CONSTITUTIONAL: Denies fevers, chills, or night sweats. No unintentional weight loss reported. NEUROLOGICAL: Complain of right sided headache Denies amaurosis fugax, motor weakness, sensory deficit, vertigo/spinning sensation, gait abnormalities, or tremors. ENT: Patient complained of right eye vision loss and right eye pain No hearing loss, otalgia, otorrhea, rhinitis, rhinorrhea, hoarseness, or sore throat. CARDIOVASCULAR: Denies any exertional angina, dyspnea on exertion, orthopnea, paroxysmal nocturnal dyspnea, palpitations, life-threatening arrhythmias, janiya ication. PULMONARY: Denies any shortness of breath, cough, phlegm/sputum, hemoptysis, pleuritic chest pain. SLEEP: Denies morning headaches, daytime somnolence or napping. Denies difficulty falling asleep, staying asleep, waking from sleep. Denies knowledge of snoring. GASTROINTESTINAL: Denies any type of dysphagia to either liquids or solids. Denies nausea, vomiting, pyrosis, early satiety, abdominal pain, diarrhea, constipation, or changes in stool consistency or caliber. Denies coffee-ground emesis, hematemesis, hematochezia, or melanotic stools. GENITOURINARY: Denies frequency, urgency, nocturia, hematuria or incontinence (Storage/Irritative symptoms.) Low urinary stream, straining to void, urinary intermittency or hesitancy, splitting of the voiding stream, terminal dribbling. ENDOCRINOLOGIC: Denies polyuria, polydipsia, polyphagia or heat/cold intolerances. HEMATOLOGIC: Denies thrombophilia/previous clots, or coagulopathy/bleeding disorders. ONCOLOGIC: Denies personal history of malignancy. DERMATOLOGIC: Denies rashes or pruritus. PSYCHIATRIC: Denies any suicidal or homicidal ideation. Denies hallucinations. PHYSICAL EXAM GENERAL APPEARANCE: The patient is awake, alert, and oriented, in no acute cardiopulmonary distress. NEUROLOGICAL: Cranial nerves II-XII grossly intact. Motor is 5/5 in bilateral upper and lower extremities proximal to distal. No sensory deficits. HEENT: Swollen to the right periorbital area, unable to fully open the eye, noted to have some pus upon physical examination. NECK: Supple. No JVD. No thyromegaly. No submental, submandibular, pre- /postauricular, occipital or supraclavicular lymphadenopathy. CHEST: Normal chest expansion. No Telemetry. LUNGS: Absence of any rales, rhonchi or any wheezing. CARDIOVASCULAR: Regular. S1 and S2 normal. No appreciable rubs, murmurs or gallops. ABDOMEN: Soft, nontender, and nondistended. There is no rebound, voluntary guarding, or rigidity. : Deferred. No Ryan. EXTREMITIES: Non-edematous and not cyanotic. No clubbing. Good capillary refill. SKIN: No skin breakdown. Vital Signs (last 8hr) Date Time Temp Pulse Resp B/P (MAP) Pulse Ox O2 Delivery O2 Flow Rate FiO2 10/21/24 08:00 98.2 86 18 156/85 99 Room Air 10/21/24 03:44 98.8 91 18 142/79 98 Room Air 21 LABS: Laboratory: Test 10/21/24 08:05 10/21/24 05:44 10/21/24 04:26 10/20/24 12:55 Range/Units Blood Gas Specimen Type Arterial Arterial Blood pH 7.313 L 7.350-7.450 Arterial Blood Partial Pressure CO2 20 *L 32-45 mmHg Arterial Blood Partial Pressure O2 101.0 83.0-108.0 mmHg Arterial Blood HCO3 9.9 L 21.0-28.0 mmol/L Arterial Blood Oxygen Saturation 97.3 94.0-98.0 % Arterial Blood Base Excess -13.8 L -2.0-3.0 mmol/L Blood Gas Temperature 37.0 35.5-37.0 CELSIUS Blood Gas Vent Mode RA ROOM AIR FiO2 21.0 % Blood Gas Specimen Comment RR Whole Blood Glucose 225 H 70-110 MG/DL White Blood Count 19.0 H 4.8-10.8 K/uL Red Blood Count 4.12 4.00-5.50 MIL/uL Hemoglobin 12.4 12.0-16.0 g/dL Hematocrit 36.8 36-48 % Mean Corpuscular Volume 89.3 79-99 fL Mean Corpuscular Hemoglobin 30.1 27.0-33.0 pg Mean Corpuscular Hemoglobin Concent 33.7 32.0-36.0 g/dL Red Cell Distribution Width 13.2 11.0-15.5 % Platelet Count 237 130-400 K/uL Mean Platelet Volume 10.4 7.5-10.5 fL Immature Granulocyte % (Auto) 5.0 H 0-1 % Neutrophils (%) (Auto) 68.4 40.0-77.0 % Lymphocytes (%) (Auto) 16.6 L 21.0-51.0 % Monocytes (%) (Auto) 9.2 3.0-13.0 % Eosinophils (%) (Auto) 0.3 0.0-8.0 % Basophils (%) (Auto) 0.5 0.0-5.0 % Neutrophils # (Auto) 13.0 H 1.8-7.7 K/uL Lymphocytes # (Auto) 3.2 1.0-4.8 K/uL Monocytes # (Auto) 1.7 H 0.1-1.0 K/uL Eosinophils # (Auto) 0.05 0.00-0.70 K/uL Basophils # (Auto) 0.10 0.00-0.20 K/uL Absolute Immature Granulocyte (auto 0.95 0-1 K/uL Nucleated Red Blood Cells 0.0 0.0-0.19 % Erythrocyte Sedimentation Rate 98 H 0-20 MM/HR Sodium Level 128 L 136-145 mmol/L Potassium Level 4.5 3.5-5.1 mmol/L Chloride Level 98 L 101-111 mmol/L Carbon Dioxide Level 14 L 21-32 mmol/L Blood Urea Nitrogen 18 7-18 mg/dL Creatinine 1.0 0.5-1.0 mg/dL Glomerular Filtration Rate Calc 70 >90 mL/min Random Glucose 239 H 70-105 mg/dL Hemoglobin A1c 12.1 H 4.0-6.0 % Estimated Average Glucose (eAG) 301 H 70-126 mg/dL Total Calcium 8.5 8.5-10.1 mg/dL Magnesium Level 1.70 L 1.80-2.40 mg/dL Total Bilirubin 0.4 # 0.2-1.0 mg/dL Aspartate Amino Transf (AST/SGOT) 18 10-37 U/L Alanine Aminotransferase (ALT/SGPT) 32 12-78 U/L Alkaline Phosphatase 120 50-136 U/L C-Reactive Protein, Quantitative 164.90 H 0.5-3.0 mg/L Total Protein 7.0 6.0-8.3 g/dL Albumin 2.3 L 3.5-5.0 g/dL Triglycerides Level 174 30-200 mg/dL Cholesterol Level 121 <200 mg/dL LDL Cholesterol 56 0-99 mg/dL HDL Cholesterol 21 L 35-85 mg/dL Urine Color LIGHT-YELLOW YELLOW Urine Appearance CLOUDY H CLEAR Urine pH 5.5 5.0-8.0 Urine Specific [place] 1.023 1.001-1.031 Urine Protein 20 H NEGATIVE mg/dL Urine Glucose (UA) >=1000 H NEGATIVE mg/dL Urine Ketones 150 H NEGATIVE mg/dL Urine Occult Blood +- (TRACE) H NEGATIVE Urine Nitrate 1+ H NEGATIVE Urine Bilirubin NEGATIVE NEGATIVE mg/dL Urine Urobilinogen 0.2 0.2-1.0 mg/dL Urine Leukocyte Esterase 250 H NEGATIVE Javan/uL Urine RBC 2-5 H 0-1 /HPF Urine WBC TNTC H 0-1 /HPF Urine WBC Clumps (Auto) FEW 0-1 /HPF Urine Squamous Epithelial Cells FEW 0-2 /HPF Urine Bacteria RARE None Seen /HPF Urine HCG, Qualitative NEGATIVE NEGATIVE Urine Opiates Screen NEGATIVE NEGATIVE Urine Barbiturates Screen NEGATIVE NEGATIVE Urine Phencyclidine Screen NEGATIVE NEGATIVE Urine Amphetamines Screen NEGATIVE NEGATIVE Urine Benzodiazepines Screen NEGATIVE NEGATIVE Urine Cocaine Screen NEGATIVE NEGATIVE Urine Marijuana (THC) Screen NEGATIVE NEGATIVE Test 10/20/24 11:00 Range/Units Troponin I High Sensitivity < 4 L 4-50 ng/L Lipase 36 16-77 U/L Current Medications Medications (Trade) Dose Ordered Sig/Tyrell Route PRN Reason Start Time Stop Time Status Last Admin Dose Admin Acetaminophen (TYLenol 325MG TAB) 650 mg Q4H PRN PO MILD PAIN (1-3) 10/20/24 19:30 11/19/24 19:29 10/20/24 21:00 650 MG Acetaminophen (TYLenol 325MG TAB) 650 mg Q6H PRN PO TEMPERATURE GREATER THAN 101.5 10/20/24 19:30 11/19/24 19:29 Ceftriaxone Sodium 1 gm/ Sodium Chloride 50 ml @ 100 mls/hr BID IV 10/20/24 21:00 10/20/24 19:40 DC Ceftriaxone Sodium (ROCEphine 1G INJ) 1 gm ONCE IVPB 10/20/24 17:00 10/20/24 21:00 DC Ceftriaxone Sodium (ROCEphine 1G INJ) 1 gm Q12H IVPB 10/21/24 05:00 10/31/24 04:59 10/21/24 05:10 1 GM Dextrose (D50w) 50 ml AD PRN IV HYPOGLYCEMIA PROTOCOL 10/20/24 19:30 11/19/24 19:29 Dextrose/Sodium Chloride 1,000 ml @ 0 mls/hr AD IV 10/21/24 09:00 11/20/24 08:59 Famotidine (Pepcid 20mg Vial) 20 mg BID IV 10/20/24 21:00 11/19/24 20:59 10/21/24 07:53 20 MG Glucagon (Glucagon 1mg Kit) 1 mg AD PRN IM HYPOGLYCEMIA PROTOCOL 10/20/24 19:30 11/19/24 19:29 Insulin Human Regular (humuLIN R 100 UNIT/ML 3ML) INSULIN SLIDING SCAL... ACHS SQ 10/20/24 21:00 10/21/24 08:40 DC 10/21/24 06:45 3 UNIT Insulin Human Regular 100 unit/ Sodium Chloride 101 ml @ 0 mls/hr PROTOCOL IV 10/21/24 09:00 11/20/24 08:59 Magnesium Sulfate 50 ml @ 0 mls/hr PROTOCOL IV 10/21/24 09:00 11/20/24 08:59 Magnesium Sulfate 50 ml @ 0 mls/hr PROTOCOL PRN IV OTHER [SEE ORDER COMMENTS] 10/20/24 19:30 11/19/24 19:29 Morphine Sulfate (morPHINE 2MG SYG) 2 mg Q4H PRN IV MODERATE PAIN (4-6) 10/20/24 19:30 10/27/24 19:29 10/21/24 01:15 2 MG Ondansetron HCl (zoFRAN 4MG INJ) 4 mg Q6H PRN IV NAUSEA/VOMITING 10/20/24 19:30 11/19/24 19:29 Potassium Chloride 20 meq/ Sodium Chloride 1,010 ml @ 0 mls/hr PROTOCOL IV 10/21/24 09:00 11/20/24 08:59 Potassium Chloride/Dextrose/ Sod Cl 1,000 ml @ 0 mls/hr AD IV 10/21/24 09:00 11/20/24 08:59 Potassium Chloride 100 ml @ 100 mls/hr AD PRN IV POTASSIUM PROTOCOL 10/20/24 19:30 11/19/24 19:29 Potassium Chloride (K-Dur/Klor-Con 20meq) 20 meq AD PRN PO POTASSIUM PROTOCOL 10/20/24 19:30 11/19/24 19:29 Potassium Chloride (KCl 10% Elixir 20meq/15ml) 20 meq AD PRN PO POTASSIUM PROTOCOL 10/20/24 19:30 11/19/24 19:29 Promethazine HCl (Phenergan) 25 mg Q6H PRN IM NAUSEA/VOMITING 10/21/24 01:30 11/20/24 01:29 10/21/24 07:58 25 MG Sodium Chloride 1,000 ml @ 100 mls/hr Q10H IV 10/20/24 19:30 11/19/24 19:29 10/20/24 21:03 100 MLS/HR Sodium Chloride 1,000 ml @ 200 mls/hr PROTOCOL IV 10/21/24 09:00 11/20/24 08:59 DIAGNOSTICS / RADIOLOGY: [ ] ASSESSMENT: Acute DKA Acute pyelonephritis, POA Sepsis, POA Right periorbital cellulitis, POA PLAN: Patient upgraded to the ICU Critical care consultation requested, follow input recommendation Start the patient on DKA protocol Ophthalmology consultation requested by ER physician, we will follow input and recommendation Pending MRI brain Carotid Doppler done, no hemodynamically significant stenosis of either extracranial carotid artery system CT of the abdomen showing right renal enlargement with perinephric fat stranding and minimal right renal pelvis prominence, findings maybe related to pyelonephritis versus recently passed stone. Continue Rocephin 1 g IV q.12 hours, follow results of urine culture, adjust antibiotics based on identification and sensitivity Add vancomycin to current antibiotic management. We will request Infectious Disease consultation, follow the MRSA screen, aerobic and anaerobic culture we swapped to the right eye. Follow CT of the maxillofacial area. NEURO: Minimize central acting medications as possible. Fall Precautions. Well lighted room through the day and minimize interruptions through the night to prevent acute delirium. PULMONARY: Supplemental 02 as needed BiPAP as necessary, for respiratory distress Titrate Fio2 to keep Spo2 > or = 90% DuoNebs and CPT as needed IS hourly while awake for pulmonary hygiene prn Out of bed to chair as tolerated Maintain aspiration precautions at all times CARDIOVASCULAR: Follow hemodynamics. Vital signs per facility protocol GI & NUTRITION: Continue nutritional support Aspirations precautions Prokinetic agents and laxatives as needed KIDNEYS & ELECTROLYTES: Strict monitoring of intake and output Daily weights Avoid nephrotoxic agents Monitor electrolytes and replace as needed Goal urine output of 30mL/hr or 0.5mL/kg/hr Medications to be dosed according to renal function. Avoid contrast if possible ENDOCRINE: Maintain blood glucose between 100-180 at all times. Insulin sliding scale for blood glucose management Hypoglycemia and hyperglycemia protocol in place INFECTIOUS DISEASE: Trend temperature, WBC and procalcitonin level Follow cultures, deescalate antibiotics as soon as possible. Panculture if new onset fever HEMATOLOGY & COAGULATION: Monitor H&H. Keep Hgb > 7 Transfuse 1 unit of PRBC for Hgb < 7 Transfuse 1 pack of platelets of platelets < 20, 000 Watch for any signs and symptoms of bleeding SKIN: Pressure ulcer prevention per facility protocol Specialty mattress as needed ORTHO/REHAB Continue PT/OT PRN: MEDICATIONS Tylenol 650 mg po every 4 hrs for fever zofran 4 mg IV every 6 hrs for n/v Hydralazine 5 mg IV every 4 hrs systolic pressure > 160 bowel regiment: lactulose 20 gm PO BID PRN constipation Supportive measures: Continue GI and DVT prophylaxis Disposition: Pending improvement in clinical condition All questions answered time spent: > 35 min ISSAC VO MD Oct 21, 2024 08:58
[2024-10-21] MEDS ORDERED: PoTASSium chloRIDE 20MEQ/10ML 20 MEQ in 0.9%NACL 1000ML 1,000 ML IV SCH (09:00)
[2024-10-21] MEDS ORDERED: DEXTROSE 5 %-0.45 % NACL 1,000 ML IV SCH (09:00)
[2024-10-21] MEDS: 0.9%NACL 1000ML 1,000 ML IV SCH (09:12)
[2024-10-21] MEDS: INSULIN REGULAR, HUMAN 3ML 100 UNIT in 0.9%NACL 100ML 100 ML IV SCH (09:25)
--- NOTE | 2024-10-21 09:25 | NUR ---
Attempted to Bring down patient for MRI Brain and orbits. Per nurse pt unavailable at this time. Nurse will call when patient is ready.
[2024-10-21 09:33] LABS: ABG PCO2 20 mmHg (32-45)
[2024-10-21 09:36] LABS: CREATININE 0.9 mg/dL (0.5-1.0); POTASSIUM 3.9 mmol/L (3.5-5.1)
[2024-10-21] MEDS: MAGNESIUM 2GM PREMIX 50ML 50 ML IV SCH (09:51)
[2024-10-21] MEDS: D5W-1/2 NS/20MEQ KCL 1,000 ML IV SCH (10:20)
--- NOTE | 2024-10-21 10:35 | CONS ---
[facility] CONSULTATION NOTE Date Patient Seen: Oct 21, 2024 Time of Visit: 10:34 Supervising Physician: Harinder Barriga MD Reason for Consultation: DKA Primary Care Physician: None Outpatient Specialists: Inpatient Consults: Dr Rajan, Dr Magallanes, Dr Stephen, KASSI Attending physician: Dr Chon Patten PROBLEM LIST: Acute DKA, not POA Acute complicated cystitis, POA+ Gram-negative Rods Acute pyelonephritis, POA Sepsis, POA Right periorbital cellulitis, POA Leukocytosis New onset uncontrolled type 2 diabetes mellitus, POA hemoglobin A1c 12.1 Hypomagnesemia HPI: This is a 44-year-old female with no pertinent medical history who presented to the ED for evaluation of right eye pain, nausea and vomiting x3 days. Reports visual changes to the right eye of black specks. She has been started having bright night pain and he was prior to her groin when she wants supervision and was sent to the ER in [place] since she was there visiting and was told to follow up with the vp talent management Sunday. Patient did not follow up that Sunday she instead drove home from [facility] to [place]. She does report a previous history of Lasix surgery to both eyes 5 years ago school. He was admitted on 10/20/24 for acute heparin 0 detachment with vision loss and pyelonephritis with UTI and hyperglycemia. This morning patient's labs showed acidosis with a anion gap of 16. Hemoglobin A1c of 12.1, ketones of 3. CBC showed a pH of 7.31 pCO2 of 20 PO2 of 101 bicarb of 9.9 base excess -13.8. Went up from 16.9 on arrival to 19 today. Change Rocephin to Zosyn for now. Pending ID eval and recommendations. Head CT of brain without contrast shows no acute intracranial bleed seen. She is pending an MRI of the orbits and brain. CT abdomen and pelvis without contrast from 10/20/24 shows right renal enlargement with perinephric fat stranding and minimal right renal pelvis permanent. Findings may be related to pyelonephritis versus recently passed stone. Urinalysis correlation may be helpful. Carotid ultrasound shows no hemodynamically significant lesion seen in the either extracranial carotid artery system. PAST MEDICAL HX: see above PAST SURGICAL HX: noncontributory SOCIAL HISTORY: No tobacco, ETOH, or illicit drug use Coded Allergies: No Known Allergies (Unverified Allergy, Unknown, 10/20/24) REVIEW OF SYSTEMS: 12 point ROS reviewed with patient. Pertinent positives mentioned above. Otherwise negative. PHYSICAL EXAM: GENERAL: alert, weak, awake oriented x 3 HEENT: EOMI, Sclera non icteric, moist mucosa NECK: Supple, no JVD, trachea midline LUNGS: Clear breath sounds bilaterally. No wheezes HEART: Regular rate and rhythm. Normal S1 and S2, without murmurs ABD: Abdomen soft, nontender. Bowel sounds present EXT: No clubbing cyanosis or edema NEURO: Alert and oriented to person, follows commands Vital Signs (last 8hr) Date Time Temp Pulse Resp B/P (MAP) Pulse Ox O2 Delivery O2 Flow Rate FiO2 10/21/24 08:00 98.2 86 18 156/85 99 Room Air 10/21/24 03:44 98.8 91 18 142/79 98 Room Air 21 LABS: Hematology Labs: Test 10/21/24 04:26 Range/Units White Blood Count 19.0 H 4.8-10.8 K/uL Red Blood Count 4.12 4.00-5.50 MIL/uL Hemoglobin 12.4 12.0-16.0 g/dL Hematocrit 36.8 36-48 % Mean Corpuscular Volume 89.3 79-99 fL Mean Corpuscular Hemoglobin 30.1 27.0-33.0 pg Mean Corpuscular Hemoglobin Concent 33.7 32.0-36.0 g/dL Red Cell Distribution Width 13.2 11.0-15.5 % Platelet Count 237 130-400 K/uL Mean Platelet Volume 10.4 7.5-10.5 fL Immature Granulocyte % (Auto) 5.0 H 0-1 % Neutrophils (%) (Auto) 68.4 40.0-77.0 % Lymphocytes (%) (Auto) 16.6 L 21.0-51.0 % Monocytes (%) (Auto) 9.2 3.0-13.0 % Eosinophils (%) (Auto) 0.3 0.0-8.0 % Basophils (%) (Auto) 0.5 0.0-5.0 % Neutrophils # (Auto) 13.0 H 1.8-7.7 K/uL Lymphocytes # (Auto) 3.2 1.0-4.8 K/uL Monocytes # (Auto) 1.7 H 0.1-1.0 K/uL Eosinophils # (Auto) 0.05 0.00-0.70 K/uL Basophils # (Auto) 0.10 0.00-0.20 K/uL Absolute Immature Granulocyte (auto 0.95 0-1 K/uL Nucleated Red Blood Cells 0.0 0.0-0.19 % Erythrocyte Sedimentation Rate 98 H 0-20 MM/HR Chemistry Labs: Test 10/21/24 09:17 10/21/24 05:44 10/21/24 04:26 10/20/24 11:00 Range/Units Sodium Level 129 L 136-145 mmol/L Potassium Level 3.9 3.5-5.1 mmol/L Chloride Level 97 L 101-111 mmol/L Carbon Dioxide Level 13 L 21-32 mmol/L Blood Urea Nitrogen 17 7-18 mg/dL Creatinine 0.9 0.5-1.0 mg/dL Glomerular Filtration Rate Calc 80 >90 mL/min Random Glucose 214 H 70-105 mg/dL Whole Blood Ketones Quantitative 3.0 H 0.0-0.6 mmol/L Total Calcium 8.3 L 8.5-10.1 mg/dL Whole Blood Glucose 225 H 70-110 MG/DL Hemoglobin A1c 12.1 H 4.0-6.0 % Estimated Average Glucose (eAG) 301 H 70-126 mg/dL Magnesium Level 1.70 L 1.80-2.40 mg/dL Total Bilirubin 0.4 # 0.2-1.0 mg/dL Aspartate Amino Transf (AST/SGOT) 18 10-37 U/L Alanine Aminotransferase (ALT/SGPT) 32 12-78 U/L Alkaline Phosphatase 120 50-136 U/L C-Reactive Protein, Quantitative 164.90 H 0.5-3.0 mg/L Total Protein 7.0 6.0-8.3 g/dL Albumin 2.3 L 3.5-5.0 g/dL Triglycerides Level 174 30-200 mg/dL Cholesterol Level 121 <200 mg/dL LDL Cholesterol 56 0-99 mg/dL HDL Cholesterol 21 L 35-85 mg/dL Troponin I High Sensitivity < 4 L 4-50 ng/L Lipase 36 16-77 U/L DIAGNOSTICS / RADIOLOGY RESULTS: [ ] IMAGING REPORT Signed PATIENT: JAKE SANCHEZ MR#: [id number] : 1980 SEX: F AGE: 44 LOCATION: [facility] ORDER 32 STATUS: ADM IN [facility] REPORT#: [id number] SERVICE 28 REASON: right eye vision loss ORDERING PHYSICIAN: MICHELLE CASTILLO PROCEDURE: CAROTID - US CAROTID DUPLEX US CAROTID DUPLEX HISTORY: No additional history given. COMPARISON: None TECHNIQUE: Duplex carotid arterial Doppler ultrasound study was performed. FINDINGS: The common, internal and external carotid arteries are visualized. The peak systolic velocities of right common carotid artery is 80 centimeters per second, right internal carotid artery is 75 centimeters per second, right external carotid artery is 82 centimeters per second, and right vertebral artery is 49 centimeters per second. Right internal carotid artery to right common carotid artery ratio is 0 point. Right vertebral artery is seen with antegrade flow. The peak systolic velocities of left common carotid artery is 85 centimeters per second, left internal carotid artery is 78 centimeters per second, left external carotid artery is 107 centimeters per second, and left vertebral artery is 58 centimeters per second. Left internal carotid artery to left common carotid artery ratio is 0.9. Left vertebral artery is seen with antegrade flow. There are bilateral echogenic plaques. IMPRESSION: 1. No hemodynamically significant lesion is seen of either extracranial carotid artery system. DICTATED BY: ALISON MORALES MD DATE: 10/21/24142 ELECTRONICALLY SIGNED BY: ALISON MORALES MD DATE: 10/21/24147 PLAN Transferred to ICU DKA protocol BNP q.4 hours per protocol Seen and potassium levels Fingersticks Q1 hour Cardiac telemetry monitoring Venous blood gas in the morning Assess mental status Administer subcutaneous basal insulin consider bicarb if patient's pH is 6.9 bicarb less than five cardiac or respiratory or severely hypokalemia. Empiric broad-spectrum antibiotics Monitor for rebound DKA. NEURO: Minimize central acting medications as possible. Fall Precautions. Well lighted room through the day and minimize interruptions through the night to prevent acute delirium. PULMONARY: Supplemental 02 as needed Titrate Fio2 to keep Spo2 > or = 90% DuoNebs and CPT as needed IS hourly while awake for pulmonary hygiene Out of bed to chair as tolerated CARDIOVASCULAR: Follow hemodynamics. Titrate vasopressor to keep MAP >65 or systolic blood pressure >95mmHg Drips: Insulin per DKA protocol LINES: piv GI & NUTRITION: Continue nutritional support Aspirations precautions Prokinetic agents and laxatives as needed KIDNEYS & ELECTROLYTES: Strict monitoring of intake and output Daily weights Avoid nephrotoxic agents Monitor electrolytes and replace as needed Goal urine output of 30mL/hr or 0.5mL/kg/hr Urine output: [ ] Fluid Balance: [ ] ENDOCRINE: Maintain blood glucose between 100-180 at all times. Insulin sliding scale for blood glucose management INFECTIOUS DISEASE: Trend temperature. [place]-culture if febrile. Micro: [ ] Urine culture growing Gram-negative rods Antibiotics: Rocephin changed to Zosyn HEMATOLOGY & COAGULATION: Monitor H&H. Keep Hgb > 7 Transfuse 1 unit of PRBC for Hgb < 7 Transfuse 1 pack of platelets of platelets < 20, 000 Watch for any signs and symptoms of bleeding SKIN: Pressure ulcer prevention per facility protocol Rehab: PT/OT Prophylaxis: GI: Famotidine DVT: Lovenox Code Status: Full Resuscitation Disposition: icu Other: Total patient care time exceeds 35 minutes excluding all procedures. Case was discussed and seen with my supervising physician. The above plan was formulated and agreed upon. ATTESTATION BY PHYSICIAN The patient has been seen and evaluated, the case has been discussed with the HAND CLIPPER, I agree with the clinical findings and plan of care. Harinder Barriga MD, NELLY J ARNP Oct 21, 2024 10:35
[2024-10-21] MEDS ORDERED: VANCOMYCIN PROTOCOL PER PHARMACY IV SCH (11:30)
[2024-10-21] MEDS ORDERED: VANCOMYCIN KIT 1 GM/250 ML IV.KIT IV SCH (11:30)
[2024-10-21] MEDS: ZOSYN 3.375GM +NS 50ML IV SCH (11:33)
[2024-10-21] MEDS: ketOROlac 15MG/ML VIAL (15MG/ML) IV PRN (11:33)
[2024-10-21] MEDS: VANCOMYCIN 2GM/500 ML BAG 500 ML IV ONE (12:07)
[2024-10-21 13:02] LABS: POTASSIUM 3.3 mmol/L (3.5-5.1)
[2024-10-21] MEDS ORDERED: IOHEXOL-350 75 ML VIAL IV ONE (13:11)
--- NOTE | 2024-10-21 13:56 | HMCIMG ---
CT MAXILLOFACIAL W/CONTRAST HISTORY: Preorbital cellulitis COMPARISON: None TECHNIQUE: Multiple sequential high-resolution axial images of the paranasal sinuses were obtained. Postprocessing sagittal and coronal reconstruction images were also obtained. Patient was not given contrast through intravenous route. FINDINGS: There is right periorbital soft tissue swelling suggestive periorbital cellulitis. No evidence of intraconal or extraconal mass is seen. There is right-sided proptosis. Extraocular muscles are grossly intact. Nasal septum is grossly midline. There is no evidence of mucoperiosteal thickening involving the paranasal sinuses. The infundibula are patent bilaterally. No acute displaced fracture is seen. There is no evidence of air-fluid level in the paranasal sinuses. Parapharyngeal fat planes are preserved bilaterally. IMPRESSION: 1. No acute displaced fracture is seen. Findings suggestive of right periorbital cellulitis. No evidence of intraconal or extraconal mass is seen. CT was performed with one or more following dose reduction techniques: automated exposure control, adjustment of the mA and kv according to patient's size, or use of a iterative reconstruction technique.
[2024-10-21] MEDS: ondanSETRON 4MG INJ IV PRN (15:26)
--- NOTE | 2024-10-21 17:06 | NUR ---
Notes: Met with pt. Pt was asleep, then taken to a procedure. Nutrition Concerns: Recommendations: Continue [id number] Nurse Communications of A1C 12.1, diabetes diagnosis Provide Diabetes Education Provide Vit C 500 mg QD per hx. Smoking if medically feasible Provide b-complex QD per alcohol consumption Order vitamin B12 and D to rule out deficiencies Monitor weight, Reweigh as possible Monitor electrolytes, Replenish electrolytes as protocol Monitor goals of care RD to follow + available for consult per protocol Dietetic Student, Zoya Alex Addendum: 10/21/24 at [address] Amended: Links added.
[2024-10-21] MEDS ORDERED: GADOTERATE MEGLUMINE 10 MMOL/20 ML VIAL IV ONE (17:40)
[2024-10-21 17:41] LABS: CREATININE 0.9 mg/dL (0.5-1.0); POTASSIUM 3.6 mmol/L (3.5-5.1)
--- NOTE | 2024-10-21 17:57 | HMCIMG ---
MRI BRAIN WITHOUT AND WITH CONTRAST INDICATION: Right eye vision loss TECHNIQUE: Multiplanar multisequence imaging through the brain before and after the administration of 16 mL of Clariscan contrast material without adverse effect. COMPARISON: None FINDINGS: Mild to moderate right periorbital soft tissue swelling and right proptosis without any retrobulbar/intraconal abnormality. Mild preseptal enhancement. Left orbit appears normal. No abnormal brain parenchymal or meningeal enhancement noted. The brain parenchyma appears normal in signal intensity without evidence for acute ischemia, hemorrhage or mass lesion. No hydrocephalus or extra-axial fluid collection identified. The pituitary, cavernous sinus, hypothalamic and pineal regions appear normal. The cranial-cervical junction, atlanto-dens interval and position of the cerebellar tonsils are within normal limits. Cranial nerve VII/VIII complexes appear normal without evidence for gross intracanalicular or cerebellar-pontine angle lesion. No evidence for sinusitis or mastoiditis. Calvarium appears normal. IMPRESSION: Mild to moderate right periorbital soft tissue swelling/preseptal cellulitis and right proptosis without any retrobulbar/intraconal abnormality. MRV OF THE BRAIN INDICATION: Right eye vision loss TECHNIQUE: Magnetic resonance venography was performed of the brain and multiplanar reformatted images were obtained. COMPARISON: None FINDINGS: The superior sagittal sinus and its branches demonstrate normal caliber and drainage to the torcula. The inferior sagittal sinus, the basal vein of Keli, vein of Francisco, and straight sinus demonstrate normal caliber and drainage to the torcula. The bilateral transverse sinuses and sigmoid sinuses drain normally to the internal jugular veins. Dominant right-sided drainage of the right transverse sinus. IMPRESSION: Normal venous drainage of the intracranial system.
[2024-10-21] MEDS: fluTICasone proPIONate 50MCG/SPRAY 16 GM BOTTLE EN SCH (20:38)
--- NOTE | 2024-10-21 20:39 | PN ---
INFECTIOUS DISEASE FOLLOWUP NOTE DATE OF SERVICE: 10/21/2024. SUBJECTIVE: A 44-year-old female with newly-diagnosed diabetes mellitus during admission, presented to hospital with 2-day history of progressive right eye blindness. The patient had imaging of the brain done, which was unremarkable. While in the emergency room, the patient was found with elevated blood glucose of 100, admitted as a case of diabetic ketoacidosis. Urinalysis also was positive. The patient has been admitted to ICU and is on insulin drip. The patient also started on antibiotic for UTI. Denies fever or chills. No headache or dizziness. Denies photophobia. The patient has a history of LASIK eye surgery done many years ago in [place] without any complication. PHYSICAL EXAMINATION: GENERAL: Young female, awake. VITAL SIGNS: Temperature 99.2. EYES: No icterus. There is right eye periorbital edema. ____ of the right eye with extensive conjunctival erythema and edema. NECK: Supple. No JVD or thyromegaly. HENT: No oral thrush seen. Moist oral mucosa. LUNGS: Good air entry. No rales, no rhonchi. CARDIOVASCULAR SYSTEM: S1, S2, regular. No murmur heard. ABDOMEN: Full, soft, nontender. Bowel sounds are present. CENTRAL NERVOUS SYSTEM: Awake, alert, oriented x 3. No focal deficits. SKIN: No rashes, no itchiness. LYMPHATICS: No peripheral lymphadenopathy. HEMATOLOGIC: No bleeding tendency. MUSCULOSKELETAL: No joint swelling, erythema, or tenderness. BACK: No deformity, no pressure ulcer. LABORATORY DATA: WBC 19.0, hemoglobin 12.4, and platelet 237. Sodium 129, potassium 3.9. ASSESSMENT: A 44-year-old female with multiple problems include: * Urinary tract infection. * Diabetic ketoacidosis. * Acute right eye blindness. * Possible glaucoma. * Possible endophthalmitis. PLAN: * The patient will need ophthalmology evaluation. * Continue present antibiotic regimen. * Continue antidiabetic. * Correct electrolytes. * Obtain brain MRA and MRI to rule out ophthalmic artery stenosis. * The patient will be followed up closely. TID: [id number] RECEIPT: [id number]
[2024-10-21] MEDS: INSULIN GLARgine 100 UNITS/ML 10 ML VIAL SQ SCH (20:40)
[2024-10-21] MEDS: ERYTHROMYCIN BASE 0.5% OPHTH OINT 1 GM TUBE OU SCH (22:00)
[2024-10-21] MEDS: BRIMONIDINE TARTRATE 0.2% 5 ML BOTTLE OP SCH (22:18)
[2024-10-21] MEDS: DORZOLAMIDE HCL/TIMOLOL MALEAT DROPS 10 ML BOTTLE OP SCH (22:18)
[2024-10-21] MEDS: MOXIFLOXACIN HCL 0.5% 3ML DROPS OD SCH (22:18)
[2024-10-21] MEDS: PHARMACY COMMUNICATION MISC ONE ×2 (22:27)
[2024-10-21] MEDS ORDERED: NACL NASAL SPRAY 120 SPRAY/BOTTLE NS PRN (23:00)
[2024-10-21] MEDS: VANCOMYCIN 1.25 GM/250 ML BAG 250 ML IV SCH (23:07)
--- NOTE | 2024-10-21 23:25 | NUR ---
SPOKE WITH IDALIA AT [facility] TRANSF[facility]. TRANSFER REQUEST INITIATED.
--- NOTE | 2024-10-21 23:39 | NUR ---
RECEIVED CALL FROM [facility] THAT THE TRANSFER REQUEST WAS DECLINE DUE TO CAPACITY.
--- NOTE | 2024-10-21 23:40 | NUR ---
SPOKE WITH ADRIANA AT [facility]. TRANSFER REQUEST INITIATED, PT WAS DECLINED DUE TO ONLY OPHTHAMOLOGY FOR TRAUMA PATIENTS. Addendum: 10/22/24 at 0345 by ELYSE FENG RN RN SPOKE WITH ADRIANA AT [facility]. TRANSFER REQUEST INITIATED, PT WAS DECLINED DUE TO ONLY HAVING OPHTHAMOLOGY FOR TRAUMA PATIENTS
[2024-10-22] VITALS (23 sets, daily range): BP systolic 118–169; BP diastolic 66–95; PULSE 78–97; RESP 11–39; TEMP 98.2–99.7; O2SAT 99
[2024-10-22] MEDS: PHARMACY COMMUNICATION MISC ONE (00:30)
[2024-10-22 01:10] LABS: CREATININE 0.8 mg/dL (0.5-1.0); POTASSIUM 3.1 mmol/L (3.5-5.1)
[2024-10-22] MEDS: PoTASSium chloRIDE 10MEQ/100ML 100 ML IV ONE (01:51)
--- NOTE | 2024-10-22 02:33 | NUR ---
SUMMARY - 2029 PM - DR. MORRISON EVALUATED PT AT BEDSIDE OPHTHALMOLOGY, DILATED PTS RIGHT EYE AFTER VISITING THE ER FOR SWELLING, PAIN AND DRAINAGE TO EYE - TO /O POSSIBLE RETINA DETACHMENT, MD WAS NOT ABLE TO EVALUATE, VERY SWOLLEN. ORDERED EYE DROPS FOR PT, PUS DRAINING FROM EYE. START ERYTHROMYCIN, DORZOLAMIDE, BRIMONIDINE, AND MOXIFLOXACIN. PER MD NEW ORDER TO TRANSFER TO HIGHER LEVEL OF CARE WITH PARIMUTUEL TICKET CASHIER EXPERTISE REQUIRING A MORE INVASIVE AND DEEP EXAMINATION OF THE EYE PT RISK FOR LOOSING EYE. NOTED MADE CHARGE NURSE AND TIPPLE OILER. WORKING ON TRANSFER DX: PANOPHTHALMITIS 2300- [facility] HAVING PAIN TO RIGHT EYE, NEW ORDER IF NEEDED HYDROCODONE TO BREAK THROUGH PAIN. NOTED AND CARRIED OUT. 0000- DR. MORRISON CALLED BACK TO [facility] WANTING TO START PT ON AMPHOTERICIN B IV ABT SUSPECTED MUCORMYCOSIS- EVALUATED PT NO ESCHAR NOTED ON TOP OF MOUTH OR NOSE. COLD COMPRESS RECOMMENDED BY MD. PHARMACY TO DOSE. 0030- PHARMACY UNABLE TO RECOMMEND ABT IV DUE TO DOESN'T MEET CRITERIA MADE BENCHMARK AWARE. 0200- DAVID SAPP CALLED BACK WITH DR. MORRISON RECOMMENDATIONS START AMPHOTERICIN ABT IV PHARMACY TO DOSE FOR CANDIDAL ENDOPHTHALMITIS. PHARMACY MADE AWARE.
--- NOTE | 2024-10-22 03:45 | NUR ---
SPOKE WITH TORO AT [facility] TO INITIATE TRANSFER REQUEST, WAS ADVISED THAT INPATIENT TRANSFERS ARE ONLY ACCEPTED SUNDAY THROUGH SUNDAY [phone] AND NOT DONE OVERNIGHT.
[2024-10-22] MEDS: PHARMACY COMMUNICATION MISC SCH (03:46)
[2024-10-22 03:49] LABS: HEMATOCRIT 35.9 % (36-48); MEAN CORPUSCULAR HGB CONC 33.7 g/dL (32.0-36.0); MEAN CORPUSCULAR VOLUME 88.9 fL (79-99); RED BLOOD CELL COUNT(AUTO) 4.04 MIL/uL (4.00-5.50); RED CELL DISTRIBUTION WIDTH 13.5 % (11.0-15.5); WHITE BLOOD COUNT (AUTO) 18.5 K/uL (4.8-10.8)
[2024-10-22] MEDS: HYDROcodone/APAP 5/325 1 TAB TABLET PO PRN (03:51)
[2024-10-22 04:02] LABS: ALBUMIN 2.1 g/dL (3.5-5.0); BILIRUBIN,TOTAL 0.3 mg/dL (0.2-1.0); CREATININE 0.9 mg/dL (0.5-1.0); MAGNESIUM 2.1 mg/dL (1.80-2.40); POTASSIUM 3.5 mmol/L (3.5-5.1); TOTAL PROTEIN, SERUM 6.9 g/dL (6.0-8.3)
--- NOTE | 2024-10-22 04:20 | NUR ---
SPOKE WITH BARBARA @ [facility] TRANSFER [facility]. TRANSFER REQUEST INITIATED.
[2024-10-22] MEDS: AMPHOTERICIN B LIPOSOME IV SCH (04:49)
[2024-10-22] MEDS: WATER IV SCH (04:49)
[2024-10-22] MEDS: DEXTROSE 5% IV SCH (04:49)
[2024-10-22] MEDS ORDERED: DEXTROSE 5% IV PRN (05:00)
[2024-10-22] MEDS ORDERED: WATER IV PRN (05:00)
[2024-10-22] MEDS: DiphenhydrAMINE HCL 50 MG/ML VIAL IV PRN (05:16)
[2024-10-22] MEDS: DiphenhydrAMINE HCL 50 MG/ML VIAL ONE (05:49)
--- NOTE | 2024-10-22 06:00 | NUR ---
RECEIVED MOT INFORMATION AND ACCEPTANCE FOR PT TO BE TRANSFERRED TO [facility] IN [place]. ADDRESS: [address] [place] [address] [id number] REPORT CAN BE CALLED TO [phone] OR [phone].
--- NOTE | 2024-10-22 06:52 | CONS ---
CONSULT NOTE: endocrinology consult chief complaint: right eye pain, vision loss and N/V Reason for consult: dka and newly diagnosed dm-2 Date of Service: Oct 22, 2024 HISTORY OF PRESENT ILLNESS: This is a 44-year-old female with no pertinent medical history who presented to the ED for complaints of right eye pain.Patient reports her condition started when she was in [place], [place] and was having nausea and vomiting since Sunday and and when she woke up on Sunday she had seen black specks on her right eye and patient also reports she continued to have nausea but no vomiting and right eye pain, lost her vision. Patient also states she had Lasik procedure done 25 years ago on both eyes in [place]. Patient states this is the first time it happened and she thought that due eye pressure from nausea and vomiting she had this eye problem .Patient admits to drinking 6-7 beers per week and smoke 2 cigarettes per day and denies recreational drug use.Patient also reports she also has right flank pain but already subsided because she was given pain medication. Vital signs temperature 98.6, heart rate 96, respiration 20, blood pressure 137/75 saturation 100% on room air. Labs: WBC 16.9, hemoglobin 13.7, hematocrit 40, platelet count 202. Sodium 131, potassium 3.5, chloride 92, BUN 20, creatinine 1, GFR 70, glucose 313, alkaline phosphatase 140 albumin 2.7. Urinalysis consistent with urinary tract infection. CT head result revealed no acute intracranial bleed is seen. CT abdomen and pelvis without contrast result revealed there is right renal enlargement with perinephric fat stranding and minimal right renal pelvis prominence. Findings may be related to pyelonephritis versus recently passed stone. Pending at this time however as per ER MD right eye ultrasound disclosed a mild retinal detachment. An acoustical tile patternmaker Dr. Bustillos was consulted by ER doctor Melissa While in the ER patient received Rocephin IV, Zofran 4 mg IV, morphine 4 mg IV, Protonix 40 mg IV, Ultram 50 mg p.o. and 1 L LR bolus. she is on insulin drip fro mild DKA and also on IVF. Denies hx of dm-2 but likely newly diagnosed dm-2. hba1c 12.1% REVIEW OF SYSTEMS CONSTITUTIONAL: Denies fevers, chills, or night sweats. No unintentional weight loss reported. NEUROLOGICAL: Complain of right sided headache Denies amaurosis fugax, motor weakness, sensory deficit, vertigo/spinning sensation, gait abnormalities, or tremors. ENT: Patient complained of right eye vision loss and right eye pain No hearing loss, otalgia, otorrhea, rhinitis, rhinorrhea, hoarseness, or sore throat. CARDIOVASCULAR: Denies any exertional angina, dyspnea on exertion, orthopnea, paroxysmal nocturnal dyspnea, palpitations, life-threatening arrhythmias, claudication. PULMONARY: Denies any shortness of breath, cough, phlegm/sputum, hemoptysis, pleuritic chest pain. SLEEP: Denies morning headaches, daytime somnolence or napping. Denies difficulty falling asleep, staying asleep, waking from sleep. Denies knowledge of snoring. GASTROINTESTINAL: Denies any type of dysphagia to either liquids or solids. Denies nausea, vomiting, pyrosis, early satiety, abdominal pain, diarrhea, constipation, or changes in stool consistency or caliber. Denies coffee-ground emesis, hematemesis, hematochezia, or melanotic stools. GENITOURINARY: Denies frequency, urgency, nocturia, hematuria or incontinence (Storage/Irritative symptoms.) Low urinary stream, straining to void, urinary intermittency or hesitancy, splitting of the voiding stream, terminal dribbling. ENDOCRINOLOGIC: Denies polyuria, polydipsia, polyphagia or heat/cold intolerances. HEMATOLOGIC: Denies thrombophilia/previous clots, or coagulopathy/bleeding disorders. ONCOLOGIC: Denies personal history of malignancy. DERMATOLOGIC: Denies rashes or pruritus. PSYCHIATRIC: Denies any suicidal or homicidal ideation. Denies hallucinations. PAST MEDICAL HISTORY: [Patient denies ] PAST SURGICAL HISTORY: [ Bilateral eye LASIK procedure 25 years ago in [place] ] PAST SOCIAL HISTORY: [ Patient lives with mother. Patient admits to smoke two cigarettes per day drinks 6-7 beers per week and denies recreational drug use ] FAMILY HISTORY: [ Mother diabetes ] Coded Allergies: No Known Allergies (Unverified Allergy, Unknown, 10/20/24) PHYSICAL EXAM GENERAL APPEARANCE: The patient is awake, alert, and oriented, in no acute cardiopulmonary distress. NEUROLOGICAL: Cranial nerves II-XII grossly intact. Motor is 5/5 in bilateral upper and lower extremities proximal to distal. No sensory deficits. HEENT: Right eye nonreactive and pale retina Face is symmetric. NECK: Supple. No JVD. No thyromegaly. No submental, submandibular, pre- /postauricular, occipital or supraclavicular lymphadenopathy. CHEST: Normal chest expansion. No Telemetry. LUNGS: Absence of any rales, rhonchi or any wheezing. CARDIOVASCULAR: Regular. S1 and S2 normal. No appreciable rubs, murmurs or gallops. ABDOMEN: Soft, nontender, and nondistended. There is no rebound, voluntary guarding, or rigidity. : Deferred. No Ryan. EXTREMITIES: Non-edematous and not cyanotic. No clubbing. Good capillary refill. SKIN: No skin breakdown. ASSESSMENT: DKA, Improving she is on insulin drip 1 unit/hr fro mild DKA and also on IVF. Denies hx of dm-2 but likely newly diagnosed dm-2. hba1c 12.1% glucose are improving and stable. bicarb is mildly low. NPO for now. PH 7.3 and bicarb 17 with anion gap. newly diagnosed DM-2 no hx of dm-2 Acute right eye retinal detachment with vision loss POA Right pyelonephritis POA Acute urinary tract infection POA Hyperglycemia denies diagnosis of diabetes POA Acute leukocytosis POA PLAN: continue insulin drip and D5%1/2NS IVF Monitor glucose qxhourly monitor BMP 1 qx4-6 hourly. she will need insulin at discharge pending disposition to other hospital thanks for allowing me to participate in patient care and will continue to follow up. Vital Signs 10/22/24 10/22/24 10/22/24 03:30 04:00 05:45 Temp 98.4 Pulse 85 Resp 16 B/P (MAP) 149/85 Pulse Ox 99 O2 Delivery Room Air O2 Flow Rate 0 FiO2 21 Hematology Labs: Test 10/22/24 03:40 10/21/24 04:26 Range/Units White Blood Count 18.5 H 4.8-10.8 K/uL Red Blood Count 4.04 4.00-5.50 MIL/uL Hemoglobin 12.1 12.0-16.0 g/dL Hematocrit 35.9 L 36-48 % Mean Corpuscular Volume 88.9 79-99 fL Mean Corpuscular Hemoglobin 30.0 27.0-33.0 pg Mean Corpuscular Hemoglobin Concent 33.7 32.0-36.0 g/dL Red Cell Distribution Width 13.5 11.0-15.5 % Platelet Count 237 130-400 K/uL Mean Platelet Volume 9.9 7.5-10.5 fL Nucleated Red Blood Cells 0.0 0.0-0.19 % Immature Granulocyte % (Auto) 5.0 H 0-1 % Neutrophils (%) (Auto) 68.4 40.0-77.0 % Lymphocytes (%) (Auto) 16.6 L 21.0-51.0 % Monocytes (%) (Auto) 9.2 3.0-13.0 % Eosinophils (%) (Auto) 0.3 0.0-8.0 % Basophils (%) (Auto) 0.5 0.0-5.0 % Neutrophils # (Auto) 13.0 H 1.8-7.7 K/uL Lymphocytes # (Auto) 3.2 1.0-4.8 K/uL Monocytes # (Auto) 1.7 H 0.1-1.0 K/uL Eosinophils # (Auto) 0.05 0.00-0.70 K/uL Basophils # (Auto) 0.10 0.00-0.20 K/uL Absolute Immature Granulocyte (auto 0.95 0-1 K/uL Erythrocyte Sedimentation Rate 98 H 0-20 MM/HR Chemistry Labs: Test 10/22/24 06:03 10/22/24 03:40 10/21/24 09:17 10/21/24 04:26 Range/Units Whole Blood Glucose 185 H 70-110 MG/DL Sodium Level 134 L 136-145 mmol/L Potassium Level 3.5 3.5-5.1 mmol/L Chloride Level 103 101-111 mmol/L Carbon Dioxide Level 19 L 21-32 mmol/L Blood Urea Nitrogen 6 L 7-18 mg/dL Creatinine 0.9 0.5-1.0 mg/dL Glomerular Filtration Rate Calc 80 >90 mL/min Random Glucose 123 H 70-105 mg/dL Total Calcium 8.0 L 8.5-10.1 mg/dL Magnesium Level 2.10 1.80-2.40 mg/dL Total Bilirubin 0.3 # 0.2-1.0 mg/dL Aspartate Amino Transf (AST/SGOT) 17 10-37 U/L Alanine Aminotransferase (ALT/SGPT) 26 12-78 U/L Alkaline Phosphatase 120 50-136 U/L Total Protein 6.9 6.0-8.3 g/dL Albumin 2.1 L 3.5-5.0 g/dL Whole Blood Ketones Quantitative 3.0 H 0.0-0.6 mmol/L Vitamin B12 Level 5078 H 193-986 pg/mL Hemoglobin A1c 12.1 H 4.0-6.0 % Estimated Average Glucose (eAG) 301 H 70-126 mg/dL C-Reactive Protein, Quantitative 164.90 H 0.5-3.0 mg/L Triglycerides Level 174 30-200 mg/dL Cholesterol Level 121 <200 mg/dL LDL Cholesterol 56 0-99 mg/dL HDL Cholesterol 21 L 35-85 mg/dL Test 10/20/24 11:00 Range/Units Troponin I High Sensitivity < 4 L 4-50 ng/L Lipase 36 16-77 U/L Current Medications Medications (Trade) Dose Ordered Sig/Tyrell Route Start Time Stop Time Status Last Admin Dose Admin Amphotericin B 350 mg/Dextrose 250 ml @ 125 mls/hr Q24H IV 10/22/24 05:00 11/05/24 04:59 10/22/24 04:49 125 MLS/HR Brimonidine Tartrate (Alphagan P) INSTILL 1 DROP IN RIGHT ... BID OP 10/21/24 22:30 11/20/24 22:29 10/21/24 22:18 1 ML Ceftriaxone Sodium 1 gm/ Sodium Chloride 50 ml @ 100 mls/hr BID IV 10/20/24 21:00 10/20/24 19:40 DC Ceftriaxone Sodium (ROCEphine 1G INJ) 1 gm ONCE IVPB 10/20/24 17:00 10/20/24 21:00 DC Ceftriaxone Sodium (ROCEphine 1G INJ) 1 gm Q12H IVPB 10/21/24 05:00 10/21/24 10:42 DC 10/21/24 05:10 1 GM Dextrose/Sodium Chloride 1,000 ml @ 0 mls/hr AD IV 10/21/24 09:00 11/20/24 08:59 Dorzolamide/ Timolol (Cosopt Eye Drops) INSTILL 1 DROP IN RIGHT ... BID OP 10/21/24 22:30 11/20/24 22:29 10/21/24 22:18 1 ML Enoxaparin Sodium (Lovenox) 30 mg DAILY SQ 10/22/24 09:00 11/21/24 08:59 Erythromycin (Erythrocin 0.5% Ophth Oint) 1 APPL QID OU 10/21/24 21:00 11/20/24 08:00 10/21/24 22:00 1 APPL Famotidine (Pepcid 20mg Vial) 20 mg BID IV 10/20/24 21:00 11/19/24 20:59 10/21/24 20:38 20 MG Fluticasone Propionate (FLOnase 50 mcg/ spray 16g bottle) 1 sprays BID EN 10/21/24 21:00 11/20/24 20:59 10/21/24 20:38 1 SPRAYS Insulin Glargine (LANtus 100 UNITS/ML 10 ML VIAL) 10 units BID@0730,2100 SQ 10/21/24 21:00 11/20/24 20:59 10/22/24 06:08 10 UNITS Insulin Human Regular (humuLIN R 100 UNIT/ML 3ML) INSULIN SLIDING SCAL... ACHS SQ 10/20/24 21:00 10/21/24 08:40 DC 10/21/24 06:45 3 UNIT Insulin Human Regular 100 unit/ Sodium Chloride 101 ml @ 0 mls/hr PROTOCOL IV 10/21/24 09:00 11/20/24 08:59 10/21/24 22:22 7 MLS/HR Magnesium Sulfate 50 ml @ 0 mls/hr PROTOCOL IV 10/21/24 09:00 11/20/24 08:59 10/21/24 09:51 25 MLS/HR Moxifloxacin HCl (Vigamox) INSTILL I DROP IN RIGHT ... TID OD 10/21/24 23:00 11/20/24 22:59 10/21/24 22:18 1 DROP Pharmacy Profile Note (Pharmacy Communication) 1 each ONCE MISC 10/22/24 02:30 10/29/24 02:29 10/22/24 03:46 1 EACH Piperacillin Sod/ Tazobactam Sod (Zosyn 3.375gm+NS 50ml) 3.375 gm Q8H IV 10/21/24 11:00 10/31/24 10:59 10/22/24 03:04 3.375 GM Potassium Chloride 20 meq/ Sodium Chloride 1,010 ml @ 0 mls/hr PROTOCOL IV 10/21/24 09:00 11/20/24 08:59 Potassium Chloride/Dextrose/ Sod Cl 1,000 ml @ 0 mls/hr AD IV 10/21/24 09:00 11/20/24 08:59 10/22/24 01:50 150 MLS/HR Sodium Chloride 1,000 ml @ 100 mls/hr Q10H IV 10/20/24 19:30 10/21/24 09:26 DC 10/20/24 21:03 100 MLS/HR Sodium Chloride 1,000 ml @ 200 mls/hr PROTOCOL IV 10/21/24 09:00 11/20/24 08:59 10/21/24 09:12 200 MLS/HR Vancomycin HCl 250 ml @ 125 mls/hr Q12H IV 10/22/24 00:00 11/01/24 00:00 10/21/24 23:07 125 MLS/HR Vancomycin HCl (Vancomycin Protocol) 1 each AD IV 10/21/24 11:30 11/04/24 11:29 Vancomycin HCl (Vancomycin 1g/ 250ml Kit) 1 gm Q12H IV 10/21/24 11:30 10/21/24 11:25 LAINA ALDANA MD Oct 22, 2024 06:52
[2024-10-22] MEDS: ENOXAPARIN SODIUM 30 MG/0.3 ML SQ SCH (07:49)
[2024-10-22] MEDS: fluTICasone proPIONate 50MCG/SPRAY 16 GM BOTTLE EN SCH (07:49)
--- NOTE | 2024-10-22 08:37 | HMCIMG ---
CHEST 1VW HISTORY: Sepsis COMPARISON: None FINDINGS: A frontal projection of the chest was obtained. No acute pulmonary infiltrates is seen. The heart is normal in size. Prominent interstitial markings are seen. No evidence of aortic calcification is seen. IMPRESSION: 1. No acute pulmonary infiltrate is seen.
--- NOTE | 2024-10-22 08:45 | NUR ---
REPORT TO [facility] REPOT GIVEN TO SHIRA PERERA FROM [facility] [place].
[2024-10-22 09:24] LABS: CREATININE 0.7 mg/dL (0.5-1.0); POTASSIUM 3.3 mmol/L (3.5-5.1)
[2024-10-22] MEDS: PoTASSium chloRIDE 10MEQ/100ML 100 ML IV PRN (09:32)
--- NOTE | 2024-10-22 09:40 | PN ---
[facility] PROGRESS NOTE Date Patient Seen: Oct 22, 2024 Time of Visit: 09:40 Supervising Physician: Sarah Turner MD Primary Care Physician: None Outpatient Specialists: Inpatient Consults: Dr Rajan, Dr Magallanes, Dr Stephen, KASSI Attending physician: Dr Chon Patten PROBLEM LIST: Acute DKA, not POA, resolving Acute complicated cystitis, POA+ Gram-negative Rods Acute pyelonephritis, POA Sepsis, POA Right periorbital cellulitis, POA Leukocytosis New onset uncontrolled type 2 diabetes mellitus, POA hemoglobin A1c 12.1 Hypomagnesemia INTERVAL HISTORY: Patient is awake alert and oriented x3. Patient reports headache and nausea. She says this happens with morphine so now refusing morphine and only getting Toradol for pain control. No major overnight events. She continues with the insulin drip per DKA protocol anion gap is 13. She has already been started on Lantus for long-acting. CT maxillofacial with contrast no acute displaced fracture, findings suggestive of right periorbital cellulitis with no evidence of intraconal or extraconal mass. MRI of the brain without and with a contrast mild to moderate right periorbital soft tissue swelling, pressors no cellulitis and right proptosis without any retro lobular intracranial abnormality. She has been started on amphotericin B per ID. Manager Hotel recommended transferred to [facility] for further evaluation because patient is not able to open the right eye and advanced equipment needed for evaluation and availability at [facility] and [facility]. REVIEW OF SYSTEMS: 12 point ROS reviewed with patient. Pertinent positives mentioned above. Otherwise negative. PHYSICAL EXAM: GENERAL: alert, weak, awake oriented x 3 HEENT: Right eye swelling right eye periorbital edema. NECK: Supple, no JVD, trachea midline LUNGS: Clear breath sounds bilaterally. No wheezes HEART: Regular rate and rhythm. Normal S1 and S2, without murmurs ABD: Abdomen soft, nontender. Bowel sounds present EXT: No clubbing cyanosis or edema NEURO: Alert and oriented to person, follows commands Vital Signs (last 8hr) Date Time Temp Pulse Resp B/P (MAP) Pulse Ox O2 Delivery O2 Flow Rate FiO2 10/22/24 08:00 99 Room Air* 0 21 10/22/24 07:00 80 17 162/95 98 Room Air 10/22/24 05:45 85 16 149/85 99 Room Air 10/22/24 05:30 85 14 98 10/22/24 05:00 85 17 97 10/22/24 04:45 97 16 118/66 99 Room Air 10/22/24 04:30 91 18 98 10/22/24 04:00 78 12 99 10/22/24 04:00 99 Room Air* 0 21 10/22/24 03:30 98.4 81 13 99 Room Air 10/22/24 03:00 85 15 99 10/22/24 02:45 82 18 149/81 98 Room Air 10/22/24 02:30 81 18 99 10/22/24 02:00 85 19 98 10/22/24 01:45 81 11 152/72 99 Room Air LABS: Hematology Labs: Test 10/22/24 03:40 10/21/24 04:26 Range/Units White Blood Count 18.5 H 4.8-10.8 K/uL Red Blood Count 4.04 4.00-5.50 MIL/uL Hemoglobin 12.1 12.0-16.0 g/dL Hematocrit 35.9 L 36-48 % Mean Corpuscular Volume 88.9 79-99 fL Mean Corpuscular Hemoglobin 30.0 27.0-33.0 pg Mean Corpuscular Hemoglobin Concent 33.7 32.0-36.0 g/dL Red Cell Distribution Width 13.5 11.0-15.5 % Platelet Count 237 130-400 K/uL Mean Platelet Volume 9.9 7.5-10.5 fL Nucleated Red Blood Cells 0.0 0.0-0.19 % Immature Granulocyte % (Auto) 5.0 H 0-1 % Neutrophils (%) (Auto) 68.4 40.0-77.0 % Lymphocytes (%) (Auto) 16.6 L 21.0-51.0 % Monocytes (%) (Auto) 9.2 3.0-13.0 % Eosinophils (%) (Auto) 0.3 0.0-8.0 % Basophils (%) (Auto) 0.5 0.0-5.0 % Neutrophils # (Auto) 13.0 H 1.8-7.7 K/uL Lymphocytes # (Auto) 3.2 1.0-4.8 K/uL Monocytes # (Auto) 1.7 H 0.1-1.0 K/uL Eosinophils # (Auto) 0.05 0.00-0.70 K/uL Basophils # (Auto) 0.10 0.00-0.20 K/uL Absolute Immature Granulocyte (auto 0.95 0-1 K/uL Erythrocyte Sedimentation Rate 98 H 0-20 MM/HR Chemistry Labs: Test 10/22/24 09:02 10/22/24 08:10 10/22/24 03:40 10/21/24 09:17 Range/Units Sodium Level 132 L 136-145 mmol/L Potassium Level 3.3 L 3.5-5.1 mmol/L Chloride Level 102 101-111 mmol/L Carbon Dioxide Level 17 L 21-32 mmol/L Blood Urea Nitrogen 5 L 7-18 mg/dL Creatinine 0.7 0.5-1.0 mg/dL Glomerular Filtration Rate Calc 108 >90 mL/min Random Glucose 219 #H 70-105 mg/dL Total Calcium 7.6 L 8.5-10.1 mg/dL Whole Blood Glucose 200 H 70-110 MG/DL Magnesium Level 2.10 1.80-2.40 mg/dL Total Bilirubin 0.3 # 0.2-1.0 mg/dL Aspartate Amino Transf (AST/SGOT) 17 10-37 U/L Alanine Aminotransferase (ALT/SGPT) 26 12-78 U/L Alkaline Phosphatase 120 50-136 U/L Total Protein 6.9 6.0-8.3 g/dL Albumin 2.1 L 3.5-5.0 g/dL Whole Blood Ketones Quantitative 3.0 H 0.0-0.6 mmol/L Vitamin B12 Level 5078 H 193-986 pg/mL Test 10/21/24 04:26 10/20/24 11:00 Range/Units Hemoglobin A1c 12.1 H 4.0-6.0 % Estimated Average Glucose (eAG) 301 H 70-126 mg/dL C-Reactive Protein, Quantitative 164.90 H 0.5-3.0 mg/L Triglycerides Level 174 30-200 mg/dL Cholesterol Level 121 <200 mg/dL LDL Cholesterol 56 0-99 mg/dL HDL Cholesterol 21 L 35-85 mg/dL Troponin I High Sensitivity < 4 L 4-50 ng/L Lipase 36 16-77 U/L DIAGNOSTICS / RADIOLOGY RESULTS: [ ] : 1980 SEX: F AGE: 44 LOCATION: 2BH ORDER 45 STATUS: ADM IN REPORT#: [id number] SERVICE 41 REASON: rule out thrombus ORDERING PHYSICIAN: ISSAC VO MD PROCEDURE: MRV - MR VENOGRAM BRAIN MRI BRAIN WITHOUT AND WITH CONTRAST INDICATION: Right eye vision loss TECHNIQUE: Multiplanar multisequence imaging through the brain before and after the administration of 16 mL of Clariscan contrast material without adverse effect. COMPARISON: None FINDINGS: Mild to moderate right periorbital soft tissue swelling and right proptosis without any retrobulbar/intraconal abnormality. Mild preseptal enhancement. Left orbit appears normal. No abnormal brain parenchymal or meningeal enhancement noted. The brain parenchyma appears normal in signal intensity without evidence for acute ischemia, hemorrhage or mass lesion. No hydrocephalus or extra-axial fluid collection identified. The pituitary, cavernous sinus, hypothalamic and pineal regions appear normal. The cranial-cervical junction, atlanto-dens interval and position of the cerebellar tonsils are within normal limits. Cranial nerve VII/VIII complexes appear normal without evidence for gross intracanalicular or cerebellar-pontine angle lesion. No evidence for sinusitis or mastoiditis. Calvarium appears normal. IMPRESSION: Mild to moderate right periorbital soft tissue swelling/preseptal cellulitis and right proptosis without any retrobulbar/intraconal abnormality. MRV OF THE BRAIN INDICATION: Right eye vision loss TECHNIQUE: Magnetic resonance venography was performed of the brain and multiplanar reformatted images were obtained. COMPARISON: None FINDINGS: The superior sagittal sinus and its branches demonstrate normal caliber and drainage to the torcula. The inferior sagittal sinus, the basal vein of Keli, vein of Francisco, and straight sinus demonstrate normal caliber and drainage to the torcula. The bilateral transverse sinuses and sigmoid sinuses drain normally to the internal jugular veins. Dominant right-sided drainage of the right transverse sinus. IMPRESSION: Normal venous drainage of the intracranial system. DICTATED BY: HANNAH SPARKS MD DATE: 10/21/241750 ELECTRONICALLY SIGNED BY: HANNAH SPARKS MD DATE: 10/21/241756 PLAN Pending transfers to [facility] for higher level of care per marketing researcher evaluation of right eye periorbital cellulitis Antibiotics per ID. DKA protocol BNP q.4 hours per protocol Seen and potassium levels Fingersticks Q1 hour Cardiac telemetry monitoring Venous blood gas in the morning Assess mental status Administer subcutaneous basal insulin consider bicarb if patient's pH is 6.9 bicarb less than five cardiac or respiratory or severely hypokalemia. Empiric broad-spectrum antibiotics Monitor for rebound DKA. NEURO: Minimize central acting medications as possible. Fall Precautions. Well lighted room through the day and minimize interruptions through the night to prevent acute delirium. PULMONARY: Supplemental 02 as needed Titrate Fio2 to keep Spo2 > or = 90% DuoNebs and CPT as needed IS hourly while awake for pulmonary hygiene Out of bed to chair as tolerated CARDIOVASCULAR: Follow hemodynamics. Titrate vasopressor to keep MAP >65 or systolic blood pressure >95mmHg Drips: Insulin per DKA protocol LINES: piv GI & NUTRITION: Continue nutritional support Aspirations precautions Prokinetic agents and laxatives as needed KIDNEYS & ELECTROLYTES: Strict monitoring of intake and output Daily weights Avoid nephrotoxic agents Monitor electrolytes and replace as needed Goal urine output of 30mL/hr or 0.5mL/kg/hr Urine output: [ ] Fluid Balance: [ ] ENDOCRINE: Maintain blood glucose between 100-180 at all times. Insulin sliding scale for blood glucose management INFECTIOUS DISEASE: Trend temperature. Medina-culture if febrile. Micro: [ ] Urine culture growing Gram-negative rods Antibiotics: Rocephin changed to Zosyn HEMATOLOGY & COAGULATION: Monitor H&H. Keep Hgb > 7 Transfuse 1 unit of PRBC for Hgb < 7 Transfuse 1 pack of platelets of platelets < 20, 000 Watch for any signs and symptoms of bleeding SKIN: Pressure ulcer prevention per facility protocol Rehab: PT/OT Prophylaxis: GI: Famotidine DVT: Lovenox Code Status: Full Resuscitation Disposition: icu Other: Total patient care time exceeds 35 minutes excluding all procedures. Case was discussed and seen with my supervising physician. The above plan was formulated and agreed upon. [facility] Oct 22, 2024 09:40
[2024-10-22] MEDS: LACTATED RINGERS 1000ML IV ONE (09:47)
[2024-10-22] MEDS ORDERED: VANCOMYCIN PROTOCOL PER PHARMACY IV SCH (10:00)
[2024-10-22] MEDS: INSULIN GLARgine 100 UNITS/ML 10 ML VIAL SQ ONE (10:08)
[2024-10-22] MEDS: ondanSETRON 4MG INJ IVP ONE (11:46)
[2024-10-22] MEDS ORDERED: VANCOMYCIN 1.25 GM/250 ML BAG 250 ML IV SCH (12:00)
--- NOTE | 2024-10-22 12:00 | NUR ---
TRANSFER UPDATE [facility] [place] UPDATED ON TRANSFER. EMS HAS BEEN CALLED. PENDING FOR EMS CREW TO [employer] PT FOR TRANSPORT SPOKE WITH SHIRA PERERA.
--- NOTE | 2024-10-22 12:49 | DS ---
Discharge Summary Hospital Course Summary: This is a 44-year-old female with no pertinent medical history who presented to the ED for complaints of right eye pain. Patient reportd her condition started when she was in [place], [place] and was having nausea and vomiting with the associated decreased vision to the I, reason for which she went to the ER in [facility], she was advised to follow up with the sports book server as an outpatient, however the patient decided to try to [facility]. Patient also states she had Lasik procedure done 25 years ago on both eyes in [place]. Seen and examined patient in the ER awake,alert and coherent. Patient continued to complain of right side headache and right eye pain 8/10 pain level. In the emergency room Vital signs temperature 98.6, heart rate 96, respiration 20, blood pressure 137/75 saturation 100% on room air. In the emergency room Labs: WBC 16.9, hemoglobin 13.7, hematocrit 40, platelet count 202. Sodium 131, potassium 3.5, chloride 92, BUN 20, creatinine 1, GFR 70, glucose 313, alkaline phosphatase 140 albumin 2.7. Urinalysis consistent with urinary tract infection. CT head result revealed no acute intracranial bleed is seen. CT abdomen and pelvis without contrast result revealed there is right renal enlargement with perinephric fat stranding and minimal right renal pelvis prominence. Findings may be related to pyelonephritis versus recently passed stone. An sports book server Dr. Bustillos was consulted by ER doctor Melissa as per report and will see the patient in the hospital. While in the ER patient received Rocephin IV, Zofran 4 mg IV, morphine 4 mg IV, Protonix 40 mg IV, Ultram 50 mg p.o. and 1 L LR bolus. We will admit patient for further medical management. 10/21 patient is seen and examined at bedside, case discussed with the RN, the patient upgraded to the ICU due to lab findings of DKA, she has been started on insulin drip, during my visit the patient is alert oriented x3, noted to have swollen to the right eye consistent with a right periorbital cellulitis, unable to open the eyes. Denies itching. No chest pain, denies shortness for breath, no nausea, no vomiting. Family at bedside. CT maxillofacial with contrast no acute displaced fracture, findings suggestive of right periorbital cellulitis, no evidence of intraconal or extraconal mass. MRI brain without and with contrast mild to moderate right periorbital soft tissue swelling/pressor dose cellulitis and right proptosis without any retrobulbar/intracranial abnormality. Consultation with the Infectious Disease requested, recommendations followed, patient on antibiotics, started on amphotericin B. Consultation with the sports book server requested, patient to be transferred to [place] for further evaluation, as the patient is still not able to open the right eye, equipment for further evaluation not available in our facility Today the patient is alert oriented x3, hemodynamically stable, following commands, no headache, no dizziness, no chest pain, no shortness a breath, no nausea, no vomiting, no abdominal discomfort. Still noted to have swollen to the right periorbital area, unable to fully open the eye, she is able to help in the left eye, no decreased vision of the left. Start insulin drip, getting broad-spectrum IV antibiotics at the time of my visit as well as amphotericin B. Ordnance Keeper(s): Infectious Disease, critical Care, sports book server Assessment/Plan: Final diagnosis Acute DKA Acute pyelonephritis, POA Sepsis, POA Right periorbital cellulitis, POA Acute right eye vision loss Possible retinal artery occlusion Possible endophthalmitis Discharge Instructions: The patient to be discharged to [place] today for further evaluation and medical management. Home Medications: No Active Prescriptions or Reported Meds Time spent arranging discharge: 31-60 minutes ISSAC VO MD Oct 22, 2024 12:49
--- NOTE | 2024-10-22 12:50 | NUR ---
TRANSFER TO HIGHER LEVEL OF CARE. REPORT GIVEN TO EMS, PT TRANSFERRED VIA STRECHER TO HIGHER LEVEL OF CARE. [facility] [place]. PT'S DAUGHTER AT BEDSIDE.
[2024-10-22] MEDS: ketOROlac 15MG/ML VIAL (15MG/ML) IV ONE (12:58)
[2024-10-22] MEDS ORDERED: VANCOMYCIN 1.5 GM/250 ML BAG 250 ML IV ONE (15:00)
--- NOTE | 2024-10-22 17:01 | NUR ---
Met with pt. Pt family in room during the visit. Informed pt and family of A1C at 12.1%. Educated pt and family on how to control/lower BG levels, Did not diagnose pt with diabetes. Addendum: 10/22/24 at [address] Amended: Links added.
[2024-10-22] MEDS ORDERED: INSULIN GLARgine 100 UNITS/ML 10 ML VIAL SQ SCH (21:00)
[2024-10-22] MEDS ORDERED: VANCOMYCIN 750MG VIAL IVPB SCH (23:00)
== END 2024-10-22 13:00 | disposition short-term general hospital (02) | DRG 871 ==
LOC: EDH 09:32 → EDHIP 09:33 → 4CH 19:19 → 2BH 10-21 08:50
PROVIDERS: ADMIT Internal Medicine; ATTEND Internal Medicine
DX: A41.9 Sepsis, unspecified organism (principal); E11.10 Type 2 diabetes mellitus with ketoacidosis without coma; H33.21 Serous retinal detachment, right eye; N10 Acute pyelonephritis; E83.42 Hypomagnesemia; F17.210 Nicotine dependence, cigarettes, uncomplicated; E11.65 Type 2 diabetes mellitus with hyperglycemia; H54.61 Unqualified visual loss, right eye, normal vision left eye; Z79.4 Long term (current) use of insulin; Z83.3 Family history of diabetes mellitus; Z90.710 Acquired absence of both cervix and uterus
CPT/HCPCS: 36415; 36600; 70450; 70487; 70543; 70544; 70553; 71045; 74176; 76529; 80048; 80053; 80061; 80305; 81001; 81025; 82010; 82306; 82607; 82803; 82948; 83036; 83690; 83735; 84484; 85025; 85027; 85651; 86140; 87070; 87076; 87086; 87186; 87641; 93005; 93880; G0378; J0289; J0696; J1200; J1650; J1815; J1885; J2270; J2405; J2470; J2543; J2550; J3475; J3480; J3490; J7030; J7060; J7120; Q9967; 3370; A9575; J3370